=== PATIENT | male | born 1965 | race Caucasian/White ===

== ENCOUNTER 2018-01-30 10:00 | Inpatient (IN) | payer OTHER ==
[~2018-01-30] VITALS: Ht 180.3 cm; Wt 141.9 kg
[2018-01-30] MEDS: potassium Cl 20mEq in NS 1,000 ML IV SCH ×2 (08:24→12:43)
[2018-01-30] MEDS ORDERED: nitroGLYCERIN 1gm ointment UD TP ONE (10:05)
[2018-01-30 10:24] LABS: BASOPHILS % (AUTO) 0.4 % (0-1); EOSINOPHILS # (AUTO) 0.2 X10'3 (0-0.9); EOSINOPHILS % (AUTO) 2.3 % (0-6); HEMATOCRIT 47.3 % (42.0-52.0); LYMPHOCYTES % (AUTO) 28.3 % (21-51); MEAN CORPUSCULAR HEMOGLOBIN 27.9 PG (27.0-31.0); MEAN CORPUSCULAR HGB CONC 33.9 % (33.0-36.5); MEAN CORPUSCULAR VOLUME 82.4 FL (78-98); MEAN PLATELET VOLUME 8.8 FL (7.4-10.4); MONOCYTES # (AUTO) 0.6 X10'3 (0-0.9); NEUTROPHILS # (AUTO) 4.2 X10'3 (1.8-7.7); PLATELET COUNT 212 X10'3 (140-440); RED BLOOD COUNT 5.74 X10'6 (4.70-6.10); RED CELL DISTRIBUTION WIDTH 13.9 % (11.5-14.5); WHITE BLOOD COUNT 7.1 X10'3 (4.5-11.0)
[2018-01-30 10:45] LABS: ALANINE AMINOTRANSFERASE 70 U/L (12-78); ALBUMIN 3.8 G/DL (3.4-5.0); ALKALINE PHOSPHATASE 110 IU/L (46-116); ANION GAP 9 (8-16); ASPARTATE AMINO TRANSFERASE 26 U/L (10-37); BILIRUBIN,TOTAL 0.4 MG/DL (0.1-1.0); BLOOD UREA NITROGEN 13 MG/DL (7-18); CALCIUM 8.9 MG/DL (8.5-10.1); CHLORIDE 103 MMOL/L (99-107); GLUCOSE 266 MG/DL (70-104); MAGNESIUM 2.2 MG/DL (1.5-2.4); POTASSIUM 4.3 MMOL/L (3.5-5.1); SODIUM 136 MMOL/L (135-145); TOTAL CARBON DIOXIDE 24.5 MMOL/L (24-32); TOTAL PROTEIN 7.7 G/DL (6.4-8.2); eGFR 79 ML/MIN
[2018-01-30] MEDS ORDERED: acetaminophen 325mg tablet PO PRN (11:35)
[2018-01-30] MEDS ORDERED: potassium Cl 40MEQ/NS 500ml 500 ML IV PRN ×2 (11:35)
[2018-01-30] MEDS ORDERED: potassium Cl 20 mEq SR tablet PO PRN ×2 (11:35)
[2018-01-30] MEDS ORDERED: mag hydrox/Alum hydrox/simeth 30ml oral suspension PO PRN (11:35)
[2018-01-30] MEDS ORDERED: magnesium 2GM in 50ml NS 50 ML IV PRN (11:35)
[2018-01-30] MEDS ORDERED: dextrose ORAL solution 15 GM/59 ML bottle PO PRN ×2 (11:35)
[2018-01-30] MEDS ORDERED: glucagon, human recombinant 1mg kit SUBCUT PRN (11:35)
[2018-01-30] MEDS ORDERED: ondansetron/PF 4mg/2ml inj IV PRN (11:35)
[2018-01-30] MEDS ORDERED: magnesium hydroxide 30ml (MOM) UD suspension PO PRN (11:35)
[2018-01-30] MEDS ORDERED: lisinopril 10 MG tablet PO ONE (11:35)
[2018-01-30] MEDS ORDERED: heparin 10,000 units/1 ML INJ IV ONE (11:35)
[2018-01-30] MEDS ORDERED: MESSAGE TO PHARMACY PO ONE (11:35)
[2018-01-30] MEDS ORDERED: magnesium Cl slow-release 64mg tablet PO PRN (11:35)
[2018-01-30] MEDS ORDERED: magnesium 4gm in 100ml NS 100 ML IV PRN (11:35)
[2018-01-30] MEDS ORDERED: dextrose 50%-water 50ml dispensing syringe IV PRN ×2 (11:35)
[2018-01-30 12:10] LABS: PARTIAL THROMBOPLASTIN TIME 29 SECONDS (22-32); PROTHROMBIN TIME 10.4 SECONDS (9.0-12.0)
[2018-01-30 12:59] LABS: HEMOGLOBIN A1C 10.5 % (4.5-6.2)
[2018-01-30] MEDS ORDERED: METF500T7 PO (14:07)
[2018-01-30] MEDS ORDERED: ATOR80TA PO (14:08)
[2018-01-30] MEDS ORDERED: LISI-600 PO (14:09)
[2018-01-30] MEDS ORDERED: ASPI81TA52 PO (14:10)
[2018-01-30 16:00] VITALS: BP 115/60
[2018-01-30 19:00] VITALS: BP 116/74
[2018-01-30] MEDS: insulin Lispro (HumaLOG) vial - multi-dose SQ SCH ×2 (19:19→21:01)
[2018-01-30] MEDS: heparin 10,000 units/1 ML INJ IV PRN (19:57)
[2018-01-30] MEDS: insulin glargine (Lantus) pen - multi-dose SQ SCH (21:00)
[2018-01-30 23:00] VITALS: BP 105/67
[2018-01-31] VITALS (19 sets, daily range): BP systolic 114–151; BP diastolic 53–93
[2018-01-31 02:51] LABS: BASOPHILS % (AUTO) 0.3 % (0-1); EOSINOPHILS # (AUTO) 0.2 X10'3 (0-0.9); EOSINOPHILS % (AUTO) 2.9 % (0-6); HEMATOCRIT 41.3 % (42.0-52.0); HEMOGLOBIN 14.3 g/dl (14.0-17.9); LYMPHOCYTES # (AUTO) 2.3 X10'3 (1.1-4.8); LYMPHOCYTES % (AUTO) 29.3 % (21-51); MEAN CORPUSCULAR HEMOGLOBIN 28.6 PG (27.0-31.0); MEAN CORPUSCULAR HGB CONC 34.7 % (33.0-36.5); MEAN CORPUSCULAR VOLUME 82.6 FL (78-98); MEAN PLATELET VOLUME 8.9 FL (7.4-10.4); MONOCYTES # (AUTO) 0.8 X10'3 (0-0.9); MONOCYTES % (AUTO) 9.4 % (2-12); NEUTROPHILS # (AUTO) 4.6 X10'3 (1.8-7.7); NEUTROPHILS % (AUTO) 58.1 % (42-75); PLATELET COUNT 187 X10'3 (140-440); RED CELL DISTRIBUTION WIDTH 13.9 % (11.5-14.5)
[2018-01-31 03:05] LABS: CHOLESTEROL 166 MG/DL (0-200); HDL CHOLESTEROL 41 MG/DL (35-60); LDL CHOLESTEROL 103 MG/DL (50-100); MAGNESIUM 1.9 MG/DL (1.5-2.4); TRIGLYCERIDES 202 MG/DL (20-135)
[2018-01-31] MEDS: heparin 10,000 units/1 ML INJ IV PRN (03:51)
[2018-01-31] MEDS: lisinopril 10 MG tablet PO SCH (08:00)
[2018-01-31] MEDS: atorvastatin 20mg tablet PO SCH (08:00)
[2018-01-31] MEDS: K and/or MAG REPLACEMENT MC SCH (08:00)
[2018-01-31] MEDS: potassium Cl 20mEq in NS 1,000 ML IV SCH ×3 (08:15→18:07)
[2018-01-31] MEDS: insulin Lispro (HumaLOG) vial - multi-dose SQ SCH ×2 (08:21→12:55)
[2018-01-31] MEDS: aspirin 81mg tablet.DR PO SCH (08:24)
[2018-01-31] MEDS ORDERED: aspirin 325mg tablet PO SCH (08:30)
[2018-01-31] MEDS ORDERED: LIDOcaine 1% 30ml preserv. free vial ONE ×2 (15:43→16:58)
[2018-01-31] MEDS ORDERED: iohexol 350MG/ML 100ml bottle IV ONE (15:44)
[2018-01-31] MEDS ORDERED: fentaNYL/PF 50MCG/1 ML 2ML syringe ONE (16:57)
[2018-01-31] MEDS ORDERED: midazolam 2 mg/2 ml injection ONE ×2 (16:57→17:07)
[2018-01-31] MEDS ORDERED: OXAZEpam 15mg capsule PO PRN (18:35)
[2018-01-31] MEDS ORDERED: proCHLORperazine 10 MG/2 ml inj IV PRN (18:35)
[2018-01-31] MEDS: morphine 4 MG/ML inj SYRINge IV PRN (18:54)
[2018-01-31] MEDS: insulin glargine (Lantus) pen - multi-dose SQ SCH (20:49)
[2018-02-01] MEDS: heparin 10,000 units/1 ML INJ IV PRN ×2 (00:46→15:02)
[2018-02-01 03:00] VITALS: BP 137/89
[2018-02-01] MEDS: potassium Cl 20mEq in NS 1,000 ML IV SCH ×2 (05:53→16:05)
[2018-02-01 06:00] VITALS: BP 159/99
[2018-02-01 07:01] LABS: BASOPHILS % (AUTO) 0.3 % (0-1); EOSINOPHILS # (AUTO) 0.1 X10'3 (0-0.9); EOSINOPHILS % (AUTO) 2.4 % (0-6); HEMATOCRIT 44.2 % (42.0-52.0); HEMOGLOBIN 15.1 g/dl (14.0-17.9); LYMPHOCYTES # (AUTO) 1.7 X10'3 (1.1-4.8); LYMPHOCYTES % (AUTO) 26.4 % (21-51); MEAN CORPUSCULAR HEMOGLOBIN 28.5 PG (27.0-31.0); MEAN CORPUSCULAR HGB CONC 34.2 % (33.0-36.5); MEAN CORPUSCULAR VOLUME 83.2 FL (78-98); MEAN PLATELET VOLUME 8.8 FL (7.4-10.4); MONOCYTES # (AUTO) 0.6 X10'3 (0-0.9); NEUTROPHILS # (AUTO) 3.9 X10'3 (1.8-7.7); NEUTROPHILS % (AUTO) 61.9 % (42-75); PLATELET COUNT 189 X10'3 (140-440); RED BLOOD COUNT 5.31 X10'6 (4.70-6.10); WHITE BLOOD COUNT 6.4 X10'3 (4.5-11.0)
[2018-02-01 07:10] LABS: ALBUMIN 3.3 G/DL (3.4-5.0); ANION GAP 9 (8-16); BLOOD UREA NITROGEN 9 MG/DL (7-18); BUN/CREATININE RATIO 8.8 (5.4-32.0); CALCIUM 8.5 MG/DL (8.5-10.1); CHLORIDE 104 MMOL/L (99-107); CREATININE 1.02 MG/DL (0.60-1.10); GLUCOSE 214 MG/DL (70-104); POTASSIUM 4.3 MMOL/L (3.5-5.1); SODIUM 139 MMOL/L (135-145); TOTAL CARBON DIOXIDE 26.5 MMOL/L (24-32); eGFR 77 ML/MIN
[2018-02-01] MEDS: lisinopril 10 MG tablet PO SCH (07:23)
[2018-02-01] MEDS: aspirin 81mg tablet.DR PO SCH (07:23)
[2018-02-01] MEDS: atorvastatin 20mg tablet PO SCH (07:24)
[2018-02-01] MEDS: insulin Lispro (HumaLOG) vial - multi-dose SQ SCH ×2 (07:35→19:20)
[2018-02-01] MEDS: K and/or MAG REPLACEMENT MC SCH (08:00)
[2018-02-01 11:00] VITALS: BP 139/88
[2018-02-01] MEDS ORDERED: cefazolin/dext.iso 2gm/50ml 50 ML IV ONE (11:10)
[2018-02-01 11:30] LABS: HEMATOCRIT 44.8 % (42.0-52.0); HEMOGLOBIN 15.5 g/dl (14.0-17.9); MEAN CORPUSCULAR HEMOGLOBIN 28.4 PG (27.0-31.0); MEAN CORPUSCULAR HGB CONC 34.5 % (33.0-36.5); MEAN CORPUSCULAR VOLUME 82.3 FL (78-98); MEAN PLATELET VOLUME 8.8 FL (7.4-10.4); PLATELET COUNT 201 X10'3 (140-440); RED BLOOD COUNT 5.45 X10'6 (4.70-6.10); RED CELL DISTRIBUTION WIDTH 14.3 % (11.5-14.5); WHITE BLOOD COUNT 6.6 X10'3 (4.5-11.0)
[2018-02-01 11:43] LABS: ALBUMIN 3.5 G/DL (3.4-5.0); ANION GAP 7 (8-16); BLOOD UREA NITROGEN 9 MG/DL (7-18); CALCIUM 8.9 MG/DL (8.5-10.1); CHLORIDE 103 MMOL/L (99-107); GLUCOSE 219 MG/DL (70-104); POTASSIUM 4.3 MMOL/L (3.5-5.1); SODIUM 137 MMOL/L (135-145); TOTAL CARBON DIOXIDE 27.3 MMOL/L (24-32); eGFR 79 ML/MIN
[2018-02-01 13:59] LABS: INR 1.1 INR; PROTHROMBIN TIME 11.1 SECONDS (9.0-12.0)
[2018-02-01 15:00] VITALS: BP 144/86
[2018-02-01 17:56] LABS: ABG BASE EXCESS -2.1 mmol/L (-2.0-3.0); ABG HCO3 21.3 mmol/L (22.0-26.0); ABG OXYGEN SATURATION 96.9 % (95-98); ABG PH (T) 7.428 (7.350-7.450); ABG PO2 (T) 84.7 mmHg (83-108); ALLEN'S TEST Positive; FCOHb 0.5 % (0.5-1.5); FMetHb 0.2 % (0.3-1.12); FO2Hb 96.2 % (94-100); TOTAL HEMOGLOBIN 15.4 G/dl (14.0-18.0)
[2018-02-01 19:00] VITALS: BP 143/94
[2018-02-01] MEDS: insulin glargine (Lantus) pen - multi-dose SQ SCH (22:22)
[2018-02-01 23:00] VITALS: BP 143/79
[2018-02-02 03:00] VITALS: BP 143/85
[2018-02-02 05:57] LABS: BASOPHILS % (AUTO) 0.5 % (0-1); EOSINOPHILS # (AUTO) 0.2 X10'3 (0-0.9); EOSINOPHILS % (AUTO) 2.5 % (0-6); HEMATOCRIT 43.2 % (42.0-52.0); HEMOGLOBIN 14.8 g/dl (14.0-17.9); LYMPHOCYTES # (AUTO) 2.2 X10'3 (1.1-4.8); LYMPHOCYTES % (AUTO) 29.1 % (21-51); MEAN CORPUSCULAR HEMOGLOBIN 28.3 PG (27.0-31.0); MEAN CORPUSCULAR HGB CONC 34.3 % (33.0-36.5); MEAN CORPUSCULAR VOLUME 82.5 FL (78-98); MEAN PLATELET VOLUME 9.1 FL (7.4-10.4); MONOCYTES # (AUTO) 0.8 X10'3 (0-0.9); MONOCYTES % (AUTO) 9.8 % (2-12); NEUTROPHILS # (AUTO) 4.5 X10'3 (1.8-7.7); NEUTROPHILS % (AUTO) 58.1 % (42-75); PLATELET COUNT 196 X10'3 (140-440); RED BLOOD COUNT 5.24 X10'6 (4.70-6.10); RED CELL DISTRIBUTION WIDTH 13.9 % (11.5-14.5); WHITE BLOOD COUNT 7.7 X10'3 (4.5-11.0)
[2018-02-02 06:00] VITALS: BP 140/95
[2018-02-02 06:13] LABS: ALBUMIN 3.4 G/DL (3.4-5.0); ANION GAP 7 (8-16); BLOOD UREA NITROGEN 9 MG/DL (7-18); CALCIUM 8.8 MG/DL (8.5-10.1); CHLORIDE 103 MMOL/L (99-107); GLUCOSE 172 MG/DL (70-104); POTASSIUM 4.5 MMOL/L (3.5-5.1); SODIUM 137 MMOL/L (135-145); TOTAL CARBON DIOXIDE 27.1 MMOL/L (24-32); eGFR 79 ML/MIN
[2018-02-02 06:16] LABS: INR 1.1 INR; PROTHROMBIN TIME 11.5 SECONDS (9.0-12.0)
[2018-02-02] MEDS: ondansetron/PF 4mg/2ml inj IV PRN (06:32)
[2018-02-02] MEDS: morphine 4 MG/ML inj SYRINge IV PRN ×2 (06:36→14:48)
[2018-02-02] MEDS ORDERED: nitroGLYCERIN 0.4mg SUBLingual tab SL PRN (07:50)
[2018-02-02] MEDS: K and/or MAG REPLACEMENT MC SCH (08:00)
[2018-02-02] MEDS: aspirin 81mg tablet.DR PO SCH (08:03)
[2018-02-02] MEDS: lisinopril 10 MG tablet PO SCH (08:03)
[2018-02-02] MEDS: atorvastatin 20mg tablet PO SCH (08:03)
[2018-02-02 08:04] VITALS: BP 150/91
[2018-02-02] MEDS: insulin Lispro (HumaLOG) vial - multi-dose SQ SCH ×3 (09:26→18:38)
[2018-02-02] MEDS: potassium Cl 20mEq in NS 1,000 ML IV SCH ×2 (09:28→19:33)
[2018-02-02] MEDS ORDERED: ringers solution, lacted 1,000 ML IV ONE (09:54)
[2018-02-02] MEDS ORDERED: diazepam 5mg tablet PO ONE (09:55)
[2018-02-02 11:00] VITALS: BP 145/88
[2018-02-02 15:00] VITALS: BP 103/70
[2018-02-02 19:25] VITALS: BP 128/74
[2018-02-02] MEDS: insulin glargine (Lantus) pen - multi-dose SQ SCH (21:00)
[2018-02-03] VITALS (12 sets, daily range): BP systolic 98–144; BP diastolic 50–85
[2018-02-03] MEDS: potassium Cl 20mEq in NS 1,000 ML IV SCH ×2 (00:20→15:07)
[2018-02-03 02:31] LABS: BASOPHILS % (AUTO) 0.2 % (0-1); EOSINOPHILS # (AUTO) 0.2 X10'3 (0-0.9); EOSINOPHILS % (AUTO) 2.7 % (0-6); HEMATOCRIT 43.8 % (42.0-52.0); HEMOGLOBIN 14.8 g/dl (14.0-17.9); LYMPHOCYTES # (AUTO) 2.4 X10'3 (1.1-4.8); LYMPHOCYTES % (AUTO) 29.1 % (21-51); MEAN CORPUSCULAR HEMOGLOBIN 28.2 PG (27.0-31.0); MEAN CORPUSCULAR HGB CONC 33.8 % (33.0-36.5); MEAN CORPUSCULAR VOLUME 83.3 FL (78-98); MEAN PLATELET VOLUME 8.7 FL (7.4-10.4); MONOCYTES # (AUTO) 0.7 X10'3 (0-0.9); NEUTROPHILS # (AUTO) 4.9 X10'3 (1.8-7.7); PLATELET COUNT 179 X10'3 (140-440); RED BLOOD COUNT 5.25 X10'6 (4.70-6.10); RED CELL DISTRIBUTION WIDTH 14.2 % (11.5-14.5); WHITE BLOOD COUNT 8.3 X10'3 (4.5-11.0)
[2018-02-03 02:36] LABS: ALBUMIN 3.3 G/DL (3.4-5.0); ANION GAP 11 (8-16); BLOOD UREA NITROGEN 10 MG/DL (7-18); BUN/CREATININE RATIO 10.4 (5.4-32.0); CALCIUM 8.8 MG/DL (8.5-10.1); CHLORIDE 103 MMOL/L (99-107); CREATININE 0.96 MG/DL (0.60-1.10); GLUCOSE 165 MG/DL (70-104); POTASSIUM 4.3 MMOL/L (3.5-5.1); SODIUM 138 MMOL/L (135-145); TOTAL CARBON DIOXIDE 23.6 MMOL/L (24-32); eGFR 83 ML/MIN
[2018-02-03] MEDS: morphine 4 MG/ML inj SYRINge IV PRN ×4 (03:55→20:09)
[2018-02-03 04:11] LABS: ABG BASE EXCESS 0.5 mmol/L (-2.0-3.0); ABG HCO3 24.9 mmol/L (22.0-26.0); ABG OXYGEN SATURATION 96.1 % (95-98); ABG PCO2 (T) 39.8 mmHg (35.0-48.0); ABG PH (T) 7.415 (7.350-7.450); ABG PO2 (T) 83.3 mmHg (83-108); FCOHb 0.4 % (0.5-1.5); FMetHb 0.1 % (0.3-1.12); FO2Hb 95.6 % (94-100); RESPIRATORY RATE (OBSERVED) 14 b/min; TOTAL HEMOGLOBIN 15.6 G/dl (14.0-18.0)
[2018-02-03] MEDS: insulin regular, human inj. 100 UNITS in normal saline 100ml IV soln 100 ML IV SCH ×8 (05:30→18:09)
[2018-02-03] MEDS ORDERED: isoflurane 100ml inhalation liquid IH ONE ×2 (05:30→10:25)
[2018-02-03] MEDS ORDERED: LORazepam 2 mg/ml vial IV ONE ×2 (06:00→11:30)
[2018-02-03] MEDS ORDERED: famotidine 20mg tablet PO ONE ×2 (06:00→11:30)
[2018-02-03] MEDS: mupirocin 2% nasal ointment 1gm UD NS SCH ×2 (08:00→20:00)
[2018-02-03] MEDS ORDERED: MESSAGE TO NURSING PO ONE ×5 (08:00→10:00)
[2018-02-03] MEDS ORDERED: dextrose 50%-water 50ml dispensing syringe IV PRN ×2 (08:00→15:05)
[2018-02-03] MEDS ORDERED: vancomycin/NS 1 GM ADD-VANTAGE 250 ML IV ONE ×2 (08:00→11:30)
[2018-02-03] MEDS: K and/or MAG REPLACEMENT MC SCH (08:00)
[2018-02-03] MEDS: lisinopril 10 MG tablet PO SCH (08:11)
[2018-02-03] MEDS: atorvastatin 20mg tablet PO SCH (08:11)
[2018-02-03] MEDS: aspirin 81mg tablet.DR PO SCH (08:11)
[2018-02-03] MEDS ORDERED: insulin Lispro (HumaLOG) vial - multi-dose SQ SCH (09:00)
[2018-02-03] MEDS ORDERED: SUFENTANIL CITRATE 50 MCG/ML 2ml ampule IV ONE ×2 (10:04→12:29)
[2018-02-03] MEDS ORDERED: MIDAZolam 1mg/ml 10ml vial ONE (10:04)
[2018-02-03] MEDS ORDERED: LIDOcaine 2% (20mg/ml) 5ml vial ONE (10:18)
[2018-02-03] MEDS ORDERED: rocuronium 10mg/ml inj IV ONE ×2 (10:18→12:11)
[2018-02-03] MEDS ORDERED: epiNEPHrine 1 mg/ml inj ONE (10:18)
[2018-02-03] MEDS ORDERED: etomidate 2mg/ml inj. ONE (10:18)
[2018-02-03] MEDS ORDERED: phenylephrine 10mg/ml inj IV ONE ×2 (10:18→13:00)
[2018-02-03] MEDS ORDERED: protamine sulf. 10mg/ml inj. IV ONE ×2 (10:25)
[2018-02-03] MEDS ORDERED: nitroGLYCERIN in D5W 50mg/250ml (Tridil) infusion IV ONE (10:25)
[2018-02-03] MEDS ORDERED: DOPamine/D5W 400mg/250ml bag IV ONE (10:25)
[2018-02-03] MEDS ORDERED: ipratropium/albuterol 3ml nebule IH PRN (10:25)
[2018-02-03 11:11] LABS: ABG BASE EXCESS -0.9 mmol/L (-2.0-3.0); ABG HCO3 23.8 mmol/L (22.0-26.0); ABG OXYGEN SATURATION 99.2 % (95-98); ABG PH 7.393 (7.350-7.450); CL (ABG) 103 mmol/L (99-107); FCOHb 0.8 % (0.5-1.5); FMetHb 0.3 % (0.3-1.12); FO2Hb 98.1 % (94-100); GLUCOSE (ABG) 157 mg/dl (70-105); IONIZED CA (ABG) 1.19 mmol/L (1.03-1.32); K (ABG) 4.4 mmol/L (3.3-5.1); NA (ABG) 136 mmol/L (135-145); TOTAL HEMOGLOBIN 15.4 G/dl (14.0-18.0)
[2018-02-03] MEDS ORDERED: papaverine 30 mg/ml 2ml inj. IA ONE (11:49)
[2018-02-03] MEDS: insulin Lispro (HumaLOG) vial - multi-dose SQ SCH ×3 (12:00→16:25)
[2018-02-03] MEDS ORDERED: insulin regular, human inj. 100 UNITS in normal saline 100ml IV soln 100 ML IV SCH ×4 (12:00→15:05)
[2018-02-03 12:30] LABS: ABG BASE EXCESS VENOUS -0.9 mmol/L; ABG HCO3 VENOUS 25.1 mmol/L; ABG PCO2 VENOUS 46.4 mmHg; ABG PO2 VENOUS 44.8 mmHg; CL (ABG) 103 mmol/L (99-107); FCOHb VENOUS 1.1 %; FHHb VENOUS 19.3 %; FMetHb VENOUS 0.4 %; FO2Hb VENOUS 79.2 %; GLUCOSE (ABG) 138 mg/dl (70-105); IONIZED CA (ABG) 1.19 mmol/L (1.03-1.32); K (ABG) 4.4 mmol/L (3.3-5.1); NA (ABG) 136 mmol/L (135-145); TOTAL HEMOGLOBIN 14.8 G/dl (14.0-18.0)
[2018-02-03] MEDS ORDERED: MAGNESIUM SULFATE 4 MEQ/ML (1gm/2ml) injection ONE (13:00)
[2018-02-03] MEDS ORDERED: heparin 1,000 units/ml 10ml inj ONE (13:00)
[2018-02-03] MEDS ORDERED: sodium bicarbonate (8.4%) 1 mEq/ml syringe ONE (13:00)
[2018-02-03] MEDS ORDERED: methylPREDNISolone sod. succ. 500mg inj ONE (13:00)
[2018-02-03] MEDS ORDERED: NORepinephrine 1 mg/ml inj IV ONE (13:00)
[2018-02-03] MEDS ORDERED: aminocaproic acid 250 MG/1 ML inj. ONE (13:00)
[2018-02-03] MEDS ORDERED: potassium Cl 2 mEq/ml inj IV ONE (13:00)
[2018-02-03] MEDS ORDERED: heparin 10,000 units/1 ML INJ ONE (13:00)
[2018-02-03] MEDS ORDERED: calcium chloride 100 MG/1 ML inj IV ONE (13:00)
[2018-02-03] MEDS ORDERED: LIDOcaine 2% (20 mg/ml) 5ml cardiac syringe ONE (13:00)
[2018-02-03] MEDS ORDERED: albumin (human) 25% 100 ML IV solution IV ONE (13:00)
[2018-02-03 13:01] LABS: ABG BASE EXCESS VENOUS -0.9 mmol/L; ABG HCO3 VENOUS 25.5 mmol/L; ABG PCO2 VENOUS 48.6 mmHg; ABG PO2 VENOUS 43.3 mmHg; CL (ABG) 104 mmol/L (99-107); FCOHb VENOUS 1.2 %; FHHb VENOUS 22.1 %; FMetHb VENOUS 0.4 %; FO2Hb VENOUS 76.3 %; GLUCOSE (ABG) 145 mg/dl (70-105); IONIZED CA (ABG) 1.16 mmol/L (1.03-1.32); K (ABG) 4.3 mmol/L (3.3-5.1); NA (ABG) 136 mmol/L (135-145); TOTAL HEMOGLOBIN 14.6 G/dl (14.0-18.0)
[2018-02-03 13:25] LABS: ABG BASE EXCESS -1.5 mmol/L (-2.0-3.0); ABG HCO3 23.7 mmol/L (22.0-26.0); ABG OXYGEN SATURATION 99.1 % (95-98); ABG PCO2 42.2 mmHg (35.0-45.0); ABG PH 7.368 (7.350-7.450); ABG PO2 264.2 mmHg (60.0-100.0); CL (ABG) 101 mmol/L (99-107); FCOHb 0.3 % (0.5-1.5); FMetHb 0.3 % (0.3-1.12); FO2Hb 98.5 % (94-100); GLUCOSE (ABG) 134 mg/dl (70-105); IONIZED CA (ABG) 1.05 mmol/L (1.03-1.32); NA (ABG) 131 mmol/L (135-145)
[2018-02-03 13:51] LABS: ABG BASE EXCESS -1.9 mmol/L (-2.0-3.0); ABG HCO3 23.1 mmol/L (22.0-26.0); ABG OXYGEN SATURATION 99.3 % (95-98); ABG PCO2 40.1 mmHg (35.0-45.0); ABG PH 7.378 (7.350-7.450); ABG PO2 343.7 mmHg (60.0-100.0); CL (ABG) 104 mmol/L (99-107); FCOHb 0.5 % (0.5-1.5); FMetHb 0.5 % (0.3-1.12); FO2Hb 98.3 % (94-100); GLUCOSE (ABG) 141 mg/dl (70-105); IONIZED CA (ABG) 1.07 mmol/L (1.03-1.32); K (ABG) 4.2 mmol/L (3.3-5.1); NA (ABG) 134 mmol/L (135-145); TOTAL HEMOGLOBIN 12.5 G/dl (14.0-18.0)
[2018-02-03 14:36] LABS: ABG BASE EXCESS VENOUS -1.4 mmol/L; ABG HCO3 VENOUS 24.5 mmol/L; ABG PCO2 VENOUS 46.1 mmHg; ABG PO2 VENOUS 48.3 mmHg; CL (ABG) 102 mmol/L (99-107); FHHb VENOUS 17.1 %; FMetHb VENOUS 0.4 %; FO2Hb VENOUS 81.5 %; GLUCOSE (ABG) 135 mg/dl (70-105); IONIZED CA (ABG) 1.22 mmol/L (1.03-1.32); NA (ABG) 136 mmol/L (135-145); TOTAL HEMOGLOBIN 12.8 G/dl (14.0-18.0)
[2018-02-03] MEDS ORDERED: sodium chloride 0.45% 1,000 ML IV SCH (15:03)
[2018-02-03] MEDS ORDERED: nitroGLYCERIN-Tridil 50MG/D5W 250 ML IV PRN (15:03)
[2018-02-03] MEDS ORDERED: niCARDipine/sod cl 20mg/200ml 200 ML IV PRN (15:03)
[2018-02-03] MEDS ORDERED: DOPamine 400mg/D5W 250ml 250 ML IV PRN (15:03)
[2018-02-03] MEDS ORDERED: morphine 4 MG/ML inj SYRINge IV PRN (15:05)
[2018-02-03] MEDS ORDERED: albumin (Human) 5% 250ml 250 ML IV PRN (15:05)
[2018-02-03] MEDS ORDERED: magnesium hydroxide 30ml (MOM) UD suspension PO PRN (15:05)
[2018-02-03] MEDS ORDERED: normal saline 250ml IV soln 250 ML IV PRN (15:05)
[2018-02-03] MEDS ORDERED: sodium phosphate inj. 15 MMOL in dextrose 5%-water 150 ML IV PRN (15:05)
[2018-02-03] MEDS ORDERED: magnesium 4gm in 100ml NS 100 ML IV PRN (15:05)
[2018-02-03] MEDS ORDERED: sodium phosphate inj. 30 MMOL in dextrose 5%-water 250 ML IV PRN (15:05)
[2018-02-03] MEDS ORDERED: potassium Cl 20mEq/100mL bag 100 ML IV PRN ×3 (15:05)
[2018-02-03] MEDS ORDERED: Neutra Phos packet PO PRN (15:05)
[2018-02-03] MEDS ORDERED: magnesium 2GM in 50ml NS 50 ML IV PRN (15:05)
[2018-02-03] MEDS ORDERED: metoclopramide 5 mg/ml inj IV PRN (15:05)
[2018-02-03] MEDS ORDERED: ondansetron/PF 4mg/2ml inj IV PRN (15:05)
[2018-02-03] MEDS ORDERED: acetaminophen 325mg tablet PO PRN (15:05)
[2018-02-03 15:35] LABS: BASOPHILS % (AUTO) 0 % (0-1); EOSINOPHILS # (AUTO) 0.3 X10'3 (0-0.9); EOSINOPHILS % (AUTO) 2.3 % (0-6); HEMATOCRIT 39.9 % (42.0-52.0); HEMOGLOBIN 13.6 g/dl (14.0-17.9); LYMPHOCYTES # (AUTO) 1.2 X10'3 (1.1-4.8); LYMPHOCYTES % (AUTO) 8.7 % (21-51); MEAN CORPUSCULAR HEMOGLOBIN 28.2 PG (27.0-31.0); MEAN CORPUSCULAR VOLUME 82.9 FL (78-98); MEAN PLATELET VOLUME 8.4 FL (7.4-10.4); MONOCYTES # (AUTO) 0.6 X10'3 (0-0.9); MONOCYTES % (AUTO) 4.4 % (2-12); NEUTROPHILS # (AUTO) 11.3 X10'3 (1.8-7.7); NEUTROPHILS % (AUTO) 84.6 % (42-75); PLATELET COUNT 157 X10'3 (140-440); RED BLOOD COUNT 4.81 X10'6 (4.70-6.10); RED CELL DISTRIBUTION WIDTH 13.8 % (11.5-14.5); WHITE BLOOD COUNT 13.4 X10'3 (4.5-11.0)
[2018-02-03 15:36] LABS: ABG BASE EXCESS -1.2 mmol/L (-2.0-3.0); ABG HCO3 22.6 mmol/L (22.0-26.0); ABG OXYGEN SATURATION 95.7 % (95-98); ABG PH (T) 7.436 (7.350-7.450); ABG PO2 (T) 70.9 mmHg (83-108); FCOHb 0.4 % (0.5-1.5); FMetHb 0.1 % (0.3-1.12); FO2Hb 95.2 % (94-100); MINUTE VOLUME 10 L/min; PATIENT TEMPERATURE 36.1; PEEP 5 cm H2O; RESPIRATORY RATE 14 b/min; RESPIRATORY RATE (OBSERVED) 14 b/min; TIDAL VOLUME 700 mL; TOTAL HEMOGLOBIN 14.1 G/dl (14.0-18.0)
[2018-02-03 15:50] LABS: ALANINE AMINOTRANSFERASE 100 U/L (12-78); ALBUMIN 3.1 G/DL (3.4-5.0); ALBUMIN/GLOBULIN RATIO 1.1 (1.1-1.5); ALKALINE PHOSPHATASE 79 IU/L (46-116); ANION GAP 7 (8-16); ASPARTATE AMINO TRANSFERASE 75 U/L (10-37); BILIRUBIN,TOTAL 0.8 MG/DL (0.1-1.0); BLOOD UREA NITROGEN 10 MG/DL (7-18); BUN/CREATININE RATIO 9.6 (5.4-32.0); CALCIUM 8.4 MG/DL (8.5-10.1); CHLORIDE 105 MMOL/L (99-107); CREATININE 1.04 MG/DL (0.60-1.10); GLUCOSE 139 MG/DL (70-104); MAGNESIUM 2.9 MG/DL (1.5-2.4); PHOSPHORUS 3.8 MG/DL (2.3-4.5); POTASSIUM 4.5 MMOL/L (3.5-5.1); SODIUM 138 MMOL/L (135-145); TOTAL CARBON DIOXIDE 25.9 MMOL/L (24-32); TOTAL PROTEIN 5.8 G/DL (6.4-8.2); eGFR 76 ML/MIN
[2018-02-03 15:55] LABS: INR 1.1 INR; PARTIAL THROMBOPLASTIN TIME 30 SECONDS (22-32); PROTHROMBIN TIME 11.8 SECONDS (9.0-12.0)
[2018-02-03] MEDS ORDERED: ceFAZolin 1GM/D5W- ADD-VANTAGE 50 ML IV SCH (16:00)
[2018-02-03 17:55] LABS: ABG BASE EXCESS -3.5 mmol/L (-2.0-3.0); ABG HCO3 22.1 mmol/L (22.0-26.0); ABG OXYGEN SATURATION 96.9 % (95-98); ABG PCO2 (T) 40.9 mmHg (35.0-48.0); ABG PH (T) 7.348 (7.350-7.450); ABG PO2 (T) 89.8 mmHg (83-108); FCOHb 0.3 % (0.5-1.5); FMetHb 0.2 % (0.3-1.12); FO2Hb 96.4 % (94-100); MINUTE VOLUME 11 L/min; PATIENT TEMPERATURE 36.4; PEEP 8 cm H2O; RESPIRATORY RATE 14 b/min; RESPIRATORY RATE (OBSERVED) 15 b/min; TIDAL VOLUME 700 mL; TOTAL HEMOGLOBIN 13.8 G/dl (14.0-18.0)
[2018-02-03] MEDS: docusate sod 100mg capsule PO SCH (20:00)
[2018-02-03] MEDS: mupirocin 2% ointment 22GM NS SCH (20:06)
[2018-02-03] MEDS: vancomycin/NS 1 GM ADD-VANTAGE 250 ML IV SCH (20:06)
[2018-02-03] MEDS: insulin glargine (Lantus) pen - multi-dose SQ SCH (20:31)
[2018-02-03 21:23] LABS: BASOPHILS % (AUTO) 0 % (0-1); EOSINOPHILS # (AUTO) 0.2 X10'3 (0-0.9); EOSINOPHILS % (AUTO) 1.7 % (0-6); HEMATOCRIT 40.7 % (42.0-52.0); HEMOGLOBIN 13.6 g/dl (14.0-17.9); LYMPHOCYTES # (AUTO) 0.6 X10'3 (1.1-4.8); LYMPHOCYTES % (AUTO) 4.4 % (21-51); MEAN CORPUSCULAR HEMOGLOBIN 28.2 PG (27.0-31.0); MEAN CORPUSCULAR HGB CONC 33.5 % (33.0-36.5); MONOCYTES # (AUTO) 0.3 X10'3 (0-0.9); MONOCYTES % (AUTO) 2.2 % (2-12); NEUTROPHILS # (AUTO) 12.2 X10'3 (1.8-7.7); NEUTROPHILS % (AUTO) 91.7 % (42-75); PLATELET COUNT 157 X10'3 (140-440); RED BLOOD COUNT 4.85 X10'6 (4.70-6.10); RED CELL DISTRIBUTION WIDTH 14.1 % (11.5-14.5); WHITE BLOOD COUNT 13.3 X10'3 (4.5-11.0)
[2018-02-03 21:32] LABS: ALBUMIN 3.1 G/DL (3.4-5.0); ANION GAP 10 (8-16); BLOOD UREA NITROGEN 12 MG/DL (7-18); BUN/CREATININE RATIO 8.9 (5.4-32.0); CALCIUM 8.7 MG/DL (8.5-10.1); CHLORIDE 105 MMOL/L (99-107); CREATININE 1.35 MG/DL (0.60-1.10); GLUCOSE 223 MG/DL (70-104); POTASSIUM 4.5 MMOL/L (3.5-5.1); SODIUM 138 MMOL/L (135-145); TOTAL CARBON DIOXIDE 23.3 MMOL/L (24-32); eGFR 56 ML/MIN
[2018-02-03 21:46] LABS: MAGNESIUM 2.5 MG/DL (1.5-2.4)
[2018-02-04] VITALS (24 sets, daily range): BP systolic 104–177; BP diastolic 7–84
[2018-02-04] MEDS: ondansetron/PF 4mg/2ml inj IV PRN ×2 (00:18→06:42)
[2018-02-04 00:25] LABS: ABG BASE EXCESS -4.9 mmol/L (-2.0-3.0); ABG HCO3 19.4 mmol/L (22.0-26.0); ABG OXYGEN SATURATION 91.9 % (95-98); ABG PCO2 (T) 33.5 mmHg (35.0-48.0); ABG PH (T) 7.379 (7.350-7.450); FCOHb 0.3 % (0.5-1.5); FMetHb 0.2 % (0.3-1.12); FO2Hb 91.4 % (94-100); MINUTE VOLUME 11 L/min; PATIENT TEMPERATURE 36.7; PEEP 5 cm H2O; RESPIRATORY RATE 0 b/min; TOTAL HEMOGLOBIN 13.9 G/dl (14.0-18.0)
[2018-02-04] MEDS: HYDROcodone/acetaminophen 10/325mg tab PO PRN ×2 (01:09→04:55)
[2018-02-04] MEDS: potassium Cl 20mEq in NS 1,000 ML IV SCH ×3 (01:33→21:33)
[2018-02-04 02:28] LABS: BASOPHILS % (AUTO) 0 % (0-1); EOSINOPHILS # (AUTO) 0.2 X10'3 (0-0.9); EOSINOPHILS % (AUTO) 1.3 % (0-6); HEMATOCRIT 39.9 % (42.0-52.0); HEMOGLOBIN 13.4 g/dl (14.0-17.9); LYMPHOCYTES # (AUTO) 0.6 X10'3 (1.1-4.8); LYMPHOCYTES % (AUTO) 4.2 % (21-51); MEAN CORPUSCULAR HEMOGLOBIN 28.2 PG (27.0-31.0); MEAN CORPUSCULAR HGB CONC 33.6 % (33.0-36.5); MEAN CORPUSCULAR VOLUME 83.9 FL (78-98); MONOCYTES # (AUTO) 0.5 X10'3 (0-0.9); MONOCYTES % (AUTO) 3.6 % (2-12); NEUTROPHILS # (AUTO) 13.6 X10'3 (1.8-7.7); NEUTROPHILS % (AUTO) 90.9 % (42-75); PLATELET COUNT 162 X10'3 (140-440); RED BLOOD COUNT 4.76 X10'6 (4.70-6.10); RED CELL DISTRIBUTION WIDTH 14.2 % (11.5-14.5); WHITE BLOOD COUNT 14.9 X10'3 (4.5-11.0)
[2018-02-04 02:37] LABS: INR 1.1 INR; PARTIAL THROMBOPLASTIN TIME 26 SECONDS (22-32); PROTHROMBIN TIME 11.4 SECONDS (9.0-12.0)
[2018-02-04] MEDS: morphine 4 MG/ML inj SYRINge IV PRN ×4 (02:37→22:05)
[2018-02-04 02:47] LABS: ALANINE AMINOTRANSFERASE 106 U/L (12-78); ALBUMIN 3.2 G/DL (3.4-5.0); ALKALINE PHOSPHATASE 72 IU/L (46-116); ANION GAP 9 (8-16); ASPARTATE AMINO TRANSFERASE 64 U/L (10-37); BILIRUBIN,TOTAL 0.4 MG/DL (0.1-1.0); BLOOD UREA NITROGEN 12 MG/DL (7-18); BUN/CREATININE RATIO 10.5 (5.4-32.0); CALCIUM 8.7 MG/DL (8.5-10.1); CHLORIDE 107 MMOL/L (99-107); CREATININE 1.14 MG/DL (0.60-1.10); GLUCOSE 184 MG/DL (70-104); MAGNESIUM 2.3 MG/DL (1.5-2.4); PHOSPHORUS 3.3 MG/DL (2.3-4.5); POTASSIUM 4.4 MMOL/L (3.5-5.1); SODIUM 140 MMOL/L (135-145); TOTAL CARBON DIOXIDE 23.7 MMOL/L (24-32); TOTAL PROTEIN 6.3 G/DL (6.4-8.2); eGFR 68 ML/MIN
[2018-02-04] MEDS: insulin regular, human inj. 100 UNITS in normal saline 100ml IV soln 100 ML IV SCH ×10 (05:29→23:22)
[2018-02-04] MEDS: K and/or MAG REPLACEMENT MC SCH (08:00)
[2018-02-04] MEDS: mupirocin 2% nasal ointment 1gm UD NS SCH (08:00)
[2018-02-04] MEDS: mupirocin 2% ointment 22GM NS SCH ×2 (08:04→20:28)
[2018-02-04] MEDS: vancomycin/NS 1 GM ADD-VANTAGE 250 ML IV SCH ×2 (08:06→20:28)
[2018-02-04] MEDS: atorvastatin 20mg tablet PO SCH (08:07)
[2018-02-04] MEDS: atorvastatin 10mg tablet PO SCH (08:07)
[2018-02-04] MEDS: aspirin 325mg tablet, delayed-release (Ecotrin) PO SCH (08:07)
[2018-02-04] MEDS: pantoprazole 40mg Tablet.DR PO SCH (08:07)
[2018-02-04] MEDS: docusate sod 100mg capsule PO SCH ×2 (08:07→20:28)
[2018-02-04] MEDS: metoprolol tartrate 12.5mg (1/2 tablet) PO SCH ×2 (08:07→20:28)
[2018-02-04] MEDS: lisinopril 10 MG tablet PO SCH (08:08)
[2018-02-04] MEDS: insulin Lispro (HumaLOG) vial - multi-dose SQ SCH ×3 (09:00→18:00)
[2018-02-04] MEDS ORDERED: insulin glargine (Lantus) pen - multi-dose SQ SCH (21:00)
[2018-02-05] VITALS (14 sets, daily range): BP systolic 108–161; BP diastolic 60–87
[2018-02-05] MEDS: HYDROcodone/acetaminophen 10/325mg tab PO PRN ×3 (01:15→17:52)
[2018-02-05 02:54] LABS: BASOPHILS % (AUTO) 0.2 % (0-1); EOSINOPHILS % (AUTO) 0 % (0-6); HEMATOCRIT 39.5 % (42.0-52.0); HEMOGLOBIN 13.2 g/dl (14.0-17.9); LYMPHOCYTES # (AUTO) 1.4 X10'3 (1.1-4.8); LYMPHOCYTES % (AUTO) 7.2 % (21-51); MEAN CORPUSCULAR HGB CONC 33.4 % (33.0-36.5); MONOCYTES # (AUTO) 2.2 X10'3 (0-0.9); MONOCYTES % (AUTO) 11.4 % (2-12); NEUTROPHILS # (AUTO) 15.5 X10'3 (1.8-7.7); NEUTROPHILS % (AUTO) 81.2 % (42-75); PLATELET COUNT 169 X10'3 (140-440); RED CELL DISTRIBUTION WIDTH 14.8 % (11.5-14.5); WHITE BLOOD COUNT 19.1 X10'3 (4.5-11.0)
[2018-02-05 03:05] LABS: ANION GAP 9 (8-16); BLOOD UREA NITROGEN 13 MG/DL (7-18); BUN/CREATININE RATIO 13.7 (5.4-32.0); CALCIUM 8.6 MG/DL (8.5-10.1); CHLORIDE 104 MMOL/L (99-107); CREATININE 0.95 MG/DL (0.60-1.10); GLUCOSE 131 MG/DL (70-104); POTASSIUM 4.8 MMOL/L (3.5-5.1); SODIUM 139 MMOL/L (135-145); TOTAL CARBON DIOXIDE 26.4 MMOL/L (24-32); eGFR 84 ML/MIN
[2018-02-05 03:06] LABS: ALBUMIN 3.1 G/DL (3.4-5.0); MAGNESIUM 2.5 MG/DL (1.5-2.4); PHOSPHORUS 4.1 MG/DL (2.3-4.5)
[2018-02-05] MEDS: insulin regular, human inj. 100 UNITS in normal saline 100ml IV soln 100 ML IV SCH ×4 (04:09→05:01)
[2018-02-05] MEDS: morphine 4 MG/ML inj SYRINge IV PRN (04:48)
[2018-02-05] MEDS: pantoprazole 40mg Tablet.DR PO SCH (07:22)
[2018-02-05] MEDS: aspirin 325mg tablet, delayed-release (Ecotrin) PO SCH (07:22)
[2018-02-05] MEDS: docusate sod 100mg capsule PO SCH ×2 (07:22→19:57)
[2018-02-05] MEDS: metoprolol tartrate 12.5mg (1/2 tablet) PO SCH ×2 (07:22→19:57)
[2018-02-05] MEDS: atorvastatin 10mg tablet PO SCH (07:22)
[2018-02-05] MEDS: lisinopril 10 MG tablet PO SCH (07:22)
[2018-02-05] MEDS: K and/or MAG REPLACEMENT MC SCH (07:23)
[2018-02-05] MEDS: mupirocin 2% ointment 22GM NS SCH (07:23)
[2018-02-05] MEDS: insulin Lispro (HumaLOG) vial - multi-dose SQ SCH ×3 (08:26→20:02)
[2018-02-05] MEDS ORDERED: magnesium Cl slow-release 64mg tablet PO PRN (09:40)
[2018-02-05] MEDS ORDERED: magnesium 4gm in 100ml NS 100 ML IV PRN (09:40)
[2018-02-05] MEDS ORDERED: potassium Cl 40MEQ/NS 500ml 500 ML IV PRN ×2 (09:40)
[2018-02-05] MEDS ORDERED: potassium Cl 20 mEq SR tablet PO PRN ×2 (09:40)
[2018-02-05] MEDS ORDERED: magnesium 2GM in 50ml NS 50 ML IV PRN (09:40)
[2018-02-05] MEDS ORDERED: glucagon, human recombinant 1mg kit SUBCUT PRN (10:25)
[2018-02-05] MEDS ORDERED: dextrose ORAL solution 15 GM/59 ML bottle PO PRN ×2 (10:25)
[2018-02-05] MEDS ORDERED: dextrose 50%-water 50ml dispensing syringe IV PRN ×2 (10:25)
[2018-02-05] MEDS: metFORMIN 500mg tablet PO SCH (17:51)
[2018-02-05] MEDS: magnesium Cl slow-release 64mg tablet PO SCH (19:12)
[2018-02-05] MEDS: potassium Cl 20 mEq SR tablet PO SCH (19:12)
[2018-02-05] MEDS: insulin glargine (Lantus) pen - multi-dose SQ SCH (22:08)
[2018-02-06 02:00] VITALS: BP 123/68
[2018-02-06] MEDS: HYDROcodone/acetaminophen 10/325mg tab PO PRN ×2 (05:15→11:23)
[2018-02-06 05:20] LABS: BASOPHILS % (AUTO) 0.2 % (0-1); EOSINOPHILS # (AUTO) 0.3 X10'3 (0-0.9); EOSINOPHILS % (AUTO) 2.7 % (0-6); HEMATOCRIT 39.7 % (42.0-52.0); HEMOGLOBIN 13.4 g/dl (14.0-17.9); LYMPHOCYTES # (AUTO) 2.2 X10'3 (1.1-4.8); LYMPHOCYTES % (AUTO) 18.1 % (21-51); MEAN CORPUSCULAR HEMOGLOBIN 28.3 PG (27.0-31.0); MEAN CORPUSCULAR HGB CONC 33.8 % (33.0-36.5); MEAN CORPUSCULAR VOLUME 83.7 FL (78-98); MEAN PLATELET VOLUME 8.9 FL (7.4-10.4); MONOCYTES # (AUTO) 1.5 X10'3 (0-0.9); MONOCYTES % (AUTO) 12.4 % (2-12); NEUTROPHILS # (AUTO) 8.3 X10'3 (1.8-7.7); NEUTROPHILS % (AUTO) 66.6 % (42-75); PLATELET COUNT 167 X10'3 (140-440); RED BLOOD COUNT 4.75 X10'6 (4.70-6.10); RED CELL DISTRIBUTION WIDTH 14.4 % (11.5-14.5); WHITE BLOOD COUNT 12.4 X10'3 (4.5-11.0)
[2018-02-06 05:21] LABS: ACTIVATED CLOTTING TIME 815 SEC (101-148)
[2018-02-06 05:21] LABS: ACTIVATED CLOTTING TIME 126 SEC (101-148)
[2018-02-06 05:21] LABS: ACT @ 1.70 U 286 SEC (193-297); ACT @ 2.84 U 379 SEC (260-420); BASELINE ACT 148 SEC (101-148)
[2018-02-06 05:45] LABS: ALBUMIN 2.9 G/DL (3.4-5.0); ANION GAP 4 (8-16); BLOOD UREA NITROGEN 16 MG/DL (7-18); BUN/CREATININE RATIO 15.4 (5.4-32.0); CALCIUM 8.9 MG/DL (8.5-10.1); CHLORIDE 101 MMOL/L (99-107); CREATININE 1.04 MG/DL (0.60-1.10); GLUCOSE 160 MG/DL (70-104); MAGNESIUM 2.1 MG/DL (1.5-2.4); POTASSIUM 4.6 MMOL/L (3.5-5.1); SODIUM 137 MMOL/L (135-145); TOTAL CARBON DIOXIDE 31.6 MMOL/L (24-32); eGFR 76 ML/MIN
[2018-02-06 06:30] VITALS: BP 134/86
[2018-02-06] MEDS: metFORMIN 500mg tablet PO SCH ×2 (06:44→17:24)
[2018-02-06] MEDS: potassium Cl 20 mEq SR tablet PO SCH ×2 (06:51→19:12)
[2018-02-06] MEDS: magnesium Cl slow-release 64mg tablet PO SCH ×2 (06:52→18:49)
[2018-02-06] MEDS: atorvastatin 20mg tablet PO SCH (07:38)
[2018-02-06] MEDS: aspirin 81mg tablet.DR PO SCH (07:38)
[2018-02-06] MEDS: pantoprazole 40mg Tablet.DR PO SCH (07:39)
[2018-02-06] MEDS: docusate sod 100mg capsule PO SCH ×2 (07:39→19:50)
[2018-02-06] MEDS: metoprolol tartrate 12.5mg (1/2 tablet) PO SCH ×2 (07:39→19:46)
[2018-02-06] MEDS: lisinopril 20mg tablet PO SCH (07:39)
[2018-02-06] MEDS: aspirin 325mg tablet, delayed-release (Ecotrin) PO SCH (07:45)
[2018-02-06] MEDS: insulin Lispro (HumaLOG) vial - multi-dose SQ SCH ×3 (07:48→19:45)
[2018-02-06] MEDS: K and/or MAG REPLACEMENT MC SCH (07:49)
[2018-02-06] MEDS ORDERED: magnesium citrate 296ml oral solution PO ONE (07:55)
[2018-02-06 11:00] VITALS: BP 131/71
[2018-02-06 15:00] VITALS: BP 121/75
[2018-02-06 18:00] VITALS: BP 114/67
[2018-02-06 22:00] VITALS: BP 122/67
[2018-02-06] MEDS: insulin glargine (Lantus) pen - multi-dose SQ SCH (22:43)
[2018-02-07 02:00] VITALS: BP 128/71
[2018-02-07 05:27] LABS: BASOPHILS % (AUTO) 0.3 % (0-1); EOSINOPHILS # (AUTO) 0.3 X10'3 (0-0.9); EOSINOPHILS % (AUTO) 2.5 % (0-6); HEMATOCRIT 40.7 % (42.0-52.0); HEMOGLOBIN 13.6 g/dl (14.0-17.9); LYMPHOCYTES % (AUTO) 17.4 % (21-51); MEAN CORPUSCULAR HEMOGLOBIN 28.1 PG (27.0-31.0); MEAN CORPUSCULAR HGB CONC 33.5 % (33.0-36.5); MEAN CORPUSCULAR VOLUME 83.9 FL (78-98); MEAN PLATELET VOLUME 8.9 FL (7.4-10.4); MONOCYTES # (AUTO) 1.2 X10'3 (0-0.9); MONOCYTES % (AUTO) 10.9 % (2-12); NEUTROPHILS # (AUTO) 7.8 X10'3 (1.8-7.7); NEUTROPHILS % (AUTO) 68.9 % (42-75); PLATELET COUNT 194 X10'3 (140-440); RED BLOOD COUNT 4.85 X10'6 (4.70-6.10); RED CELL DISTRIBUTION WIDTH 14.2 % (11.5-14.5); WHITE BLOOD COUNT 11.3 X10'3 (4.5-11.0)
[2018-02-07 05:55] LABS: ALBUMIN 2.9 G/DL (3.4-5.0); ANION GAP 11 (8-16); BLOOD UREA NITROGEN 16 MG/DL (7-18); BUN/CREATININE RATIO 17.4 (5.4-32.0); CALCIUM 8.6 MG/DL (8.5-10.1); CHLORIDE 98 MMOL/L (99-107); CREATININE 0.92 MG/DL (0.60-1.10); GLUCOSE 141 MG/DL (70-104); MAGNESIUM 2.1 MG/DL (1.5-2.4); POTASSIUM 4.1 MMOL/L (3.5-5.1); SODIUM 135 MMOL/L (135-145); TOTAL CARBON DIOXIDE 26.1 MMOL/L (24-32); eGFR 87 ML/MIN
[2018-02-07 06:30] VITALS: BP 136/85
[2018-02-07] MEDS: magnesium Cl slow-release 64mg tablet PO SCH (06:31)
[2018-02-07] MEDS: potassium Cl 20 mEq SR tablet PO SCH (06:32)
[2018-02-07] MEDS: aspirin 81mg tablet.DR PO SCH (07:22)
[2018-02-07] MEDS: atorvastatin 20mg tablet PO SCH (07:23)
[2018-02-07] MEDS: metoprolol tartrate 12.5mg (1/2 tablet) PO SCH (07:23)
[2018-02-07] MEDS: pantoprazole 40mg Tablet.DR PO SCH (07:23)
[2018-02-07] MEDS: metFORMIN 500mg tablet PO SCH (07:23)
[2018-02-07] MEDS: lisinopril 20mg tablet PO SCH (07:23)
[2018-02-07] MEDS: docusate sod 100mg capsule PO SCH (08:00)
[2018-02-07] MEDS: K and/or MAG REPLACEMENT MC SCH (08:00)
[2018-02-07] MEDS: aspirin 325mg tablet, delayed-release (Ecotrin) PO SCH (08:00)
[2018-02-07] MEDS: insulin Lispro (HumaLOG) vial - multi-dose SQ SCH (09:04)
[2018-02-07] MEDS ORDERED: COL100C PO (10:13)
[2018-02-07] MEDS ORDERED: METO25TA6 PO (10:13)
[2018-02-07] MEDS ORDERED: HYDR-3972 PO (10:13)
[2018-02-07 11:00] VITALS: BP 120/82
== END 2018-02-07 11:55 | disposition home or self-care (01) | DRG 234 ==
LOC: ER 10:00 → ED HOLD 11:33 → EDBEDREQTM 12:41 → EDBEDREQ 15:04 → PCU 3S 16:00 → UNDODISIN 01-31 16:30 → CICU 2S 02-03 10:56 → PCU 3S 02-05 11:43
PROVIDERS: ADMIT Legal Medicine; ATTEND Internal Medicine Interventional Cardiology
PROC: 4A023N7 Measurement of Cardiac Sampling and Pressure, Left Heart, Percutaneous Approach (ICD-10-PCS; 2018-01-31)
PROC: B2111ZZ Fluoroscopy of Multiple Coronary Arteries using Low Osmolar Contrast (ICD-10-PCS; 2018-01-31)
PROC: B2151ZZ Fluoroscopy of Left Heart using Low Osmolar Contrast (ICD-10-PCS; 2018-01-31)
PROC: 02100Z8 Bypass Coronary Artery, One Artery from Right Internal Mammary, Open Approach (ICD-10-PCS; 2018-02-03)
PROC: 0PH000Z Insertion of Rigid Plate Internal Fixation Device into Sternum, Open Approach (ICD-10-PCS; 2018-02-03)
PROC: B246ZZ4 Ultrasonography of Right and Left Heart, Transesophageal (ICD-10-PCS; 2018-02-03)
PROC: 5A1221Z Performance of Cardiac Output, Continuous (ICD-10-PCS; 2018-02-03)
PROC: 05HM33Z Insertion of Infusion Device into Right Internal Jugular Vein, Percutaneous Approach (ICD-10-PCS; 2018-02-03)
PROC: 02100Z9 Bypass Coronary Artery, One Artery from Left Internal Mammary, Open Approach (ICD-10-PCS; principal; 2018-02-03 10:25)
DX: I25.110 Atherosclerotic heart disease of native coronary artery with unstable angina pectoris (principal); Z68.42 Body mass index [BMI] 45.0-49.9, adult; E66.01 Morbid (severe) obesity due to excess calories; E11.65 Type 2 diabetes mellitus with hyperglycemia; K21.9 Gastro-esophageal reflux disease without esophagitis; I10 Essential (primary) hypertension; E78.5 Hyperlipidemia, unspecified; Z83.3 Family history of diabetes mellitus; Z88.0 Allergy status to penicillin
CPT/HCPCS: 0232T; 93306; 93312; 93325; 93459; 99285; 36415; 36600; 71045; 71046; 80048; 80053; 80061; 82330; 82435; 82803; 82947; 82948; 83036; 83735; 83880; 84100; 84132; 84295; 84443; 84484; 85018; 85025; 85027; 85347; 85384; 85610; 85730; 86885; 86900; 86901; 86920; 87070; 93005; 93880; 93970; 94002; 94003; 94010; 94667; 94760; 97116; 97161; 97530; 99152; 99153; A4620; A6213; A6255; A6257; A6258; A6402; A6449; A7000; A7048; C1713; C1751; C1769; J0171; J0780; J1265; J1644; J1815; J2001; J2150; J2250; J2270; J2370; J2405; J2440; J2720; J2930; J3010; J3370; J3475; J3480; J3490; J7030; J7120; P9047; Q9967

== ENCOUNTER 2021-07-27 22:08 | Inpatient (IN) | payer OTHER ==
[~2021-07-27] VITALS: Ht 177.8 cm; Wt 136.4 kg
[~2021-07-27 22:08] MED LIST: ASPI81TA52 PO; ATOR80TA PO; COL100C PO; HYDR-3972 PO; LISI20TA28 PO; LOP25T PO; METF-900 PO
[2021-07-27] MEDS ORDERED: ondansetron/PF 4mg/2ml inj IV ONE (23:10)
[2021-07-27] MEDS ORDERED: dexamethasone 4mg tablet PO ONE (23:15)
[2021-07-27] MEDS ORDERED: iohexol 350MG/ML 100ml bottle IV ONE (23:29)
[2021-07-27] MEDS ORDERED: DEXAMETHASONE 6 MG TABLET PO ONE (23:30)
[2021-07-27] MEDS ORDERED: ALBUTEROL INHALER 1 PUFF/90 MCG INHALER IH PRN (23:35)
[2021-07-28] LABS: BASOPHILS % (AUTO) 0.4 % (0-1); EOSINOPHILS % (AUTO) 0 % (0-6); HEMATOCRIT 42.9 % (42.0-52.0); HEMOGLOBIN 14.5 g/dl (14.0-17.9); LYMPHOCYTES # (AUTO) 1.2 X10'3 (1.1-4.8); LYMPHOCYTES % (AUTO) 10.6 % (21-51); MEAN CORPUSCULAR HEMOGLOBIN 26.9 PG (27.0-31.0); MEAN CORPUSCULAR HGB CONC 33.9 g/dL (33.0-36.5); MEAN CORPUSCULAR VOLUME 79.5 FL (78-98); MEAN PLATELET VOLUME 8.6 FL (7.4-10.4); MONOCYTES # (AUTO) 0.7 X10'3 (0-0.9); MONOCYTES % (AUTO) 6.6 % (2-12); NEUTROPHILS # (AUTO) 9.1 X10'3 (1.8-7.7); NEUTROPHILS % (AUTO) 82.4 % (42-75); PLATELET COUNT 161 X10'3 (140-440); RED BLOOD COUNT 5.39 X10'6 (4.70-6.10); RED CELL DISTRIBUTION WIDTH 14.4 % (11.5-14.5)
[2021-07-28 00:07] LABS: ALANINE AMINOTRANSFERASE 39 U/L (12-78); ALBUMIN/GLOBULIN RATIO 0.6 (1.1-1.5); ALKALINE PHOSPHATASE 70 IU/L (46-116); ANION GAP 10 (8-16); ASPARTATE AMINO TRANSFERASE 40 U/L (10-37); BILIRUBIN,TOTAL 0.5 MG/DL (0.1-1.0); BLOOD UREA NITROGEN 12 MG/DL (7-18); BUN/CREATININE RATIO 10.4 (5.4-32.0); CALCIUM 8.3 MG/DL (8.5-10.1); CHLORIDE 98 MMOL/L (99-107); CREATININE 1.15 MG/DL (0.60-1.10); D-DIMER 0.42 MG/L FEU (0-0.50); GLUCOSE 247 MG/DL (70-104); PARTIAL THROMBOPLASTIN TIME 32 SECONDS (22-32); SODIUM 134 MMOL/L (135-145); TOTAL CARBON DIOXIDE 26.3 MMOL/L (24-32); TOTAL PROTEIN 7.7 G/DL (6.4-8.2); eGFR 66 ML/MIN
[2021-07-28 00:11] LABS: C-REACTIVE PROTEIN 12.68 MG/DL (0.0-0.5); LACTATE DEHYDROGENASE 410 U/L (85-227); TROPONIN I < 0.04 NG/ML (0.0-0.05)
[2021-07-28] MEDS ORDERED: REMDESIVIR INJ 200 MG in normal saline 100ml IV soln 60 ML IV ONE (00:15)
[2021-07-28] MEDS ORDERED: magnesium hydroxide 30ml (MOM) UD suspension PO PRN (00:25)
[2021-07-28] MEDS ORDERED: ondansetron/PF 4mg/2ml inj IV PRN (00:25)
[2021-07-28] MEDS ORDERED: metoclopramide 5 mg/ml inj IV PRN (00:25)
[2021-07-28] MEDS ORDERED: diphenhydrAMINE 50 mg/ml inj IV PRN (00:25)
[2021-07-28] MEDS ORDERED: mag hydrox/Alum hydrox/simeth 30ml oral suspension PO PRN (00:25)
[2021-07-28] MEDS ORDERED: diphenhydrAMINE 25mg capsule PO PRN (00:25)
[2021-07-28] MEDS ORDERED: HYDROmorphone inj. 0.5 MG/0.5 ML DISP.SYRIN IV PRN (00:25)
[2021-07-28] MEDS ORDERED: acetaminophen 325mg tablet PO PRN ×2 (00:25)
[2021-07-28] MEDS ORDERED: bisacodyl 10mg suppository rectal RC PRN (00:25)
[2021-07-28] MEDS ORDERED: HYDROcodone/acetaminophen 5mg/325mg tablet PO PRN (00:25)
[2021-07-28] MEDS ORDERED: HYDROcodone/acetaminophen 10/325mg tab PO PRN (00:25)
[2021-07-28] MEDS ORDERED: morphine 2 MG/ML inj. syringe IV PRN ×2 (00:25)
[2021-07-28] MEDS ORDERED: hydrALAZINE 20mg/ml inj. IV PRN (00:35)
[2021-07-28] MEDS ORDERED: dextrose 50%-water 50ml dispensing syringe IV PRN ×2 (00:35)
[2021-07-28] MEDS ORDERED: glucagon, human recombinant 1mg kit SUBCUT PRN (00:35)
[2021-07-28] MEDS ORDERED: MESSAGE TO PHARMACY PO ONE (00:35)
[2021-07-28] MEDS ORDERED: dextrose ORAL solution 15 GM/59 ML bottle PO PRN ×2 (00:35)
[2021-07-28] MEDS: normal saline 1000ml 1,000 ML IV SCH (00:51)
[2021-07-28 02:06] LABS: HEMOGLOBIN A1C 9.7 % (4.5-6.2)
[2021-07-28] MEDS: MESSAGE TO NURSING PO SCH (02:30)
[2021-07-28 03:25] LABS: PHOSPHORUS 2.9 MG/DL (2.3-4.5)
[2021-07-28] MEDS: pantoprazole 40mg Tablet.DR PO SCH (07:30)
[2021-07-28] MEDS ORDERED: dexamethasone 4mg/ml inj IM SCH (08:00)
[2021-07-28] MEDS: levoFLOXACIN-Levaquin 750MG/D5 150 ML IV SCH (08:00)
[2021-07-28] MEDS: docusate sod 100mg capsule PO SCH ×2 (08:00→20:35)
[2021-07-28] MEDS: enoxaparin 60mg/0.6ml syringe SQ SCH ×2 (08:00→20:35)
[2021-07-28] MEDS ORDERED: dexamethasone sod phosphate 10mg/ml inj IV ONE (08:21)
[2021-07-28] MEDS: REMDESIVIR 100 MG in NS 100ml IVPB IV SCH (09:43)
[2021-07-28] MEDS: insulin Lispro (HumaLOG) vial - multi-dose SQ SCH ×2 (09:46→14:38)
[2021-07-28] MEDS ORDERED: EZET10TA6 PO (10:25)
[2021-07-28] MEDS ORDERED: ALOG25TA PO (10:25)
[2021-07-28] MEDS ORDERED: LISI5TAB22 PO (10:25)
[2021-07-28] MEDS ORDERED: OMEG-79 PO (13:13)
[2021-07-28] MEDS ORDERED: CHOL20004 PO (13:13)
[2021-07-28] MEDS ORDERED: UBID100T7 PO (13:13)
[2021-07-28] MEDS ORDERED: ASCO-100 PO (13:13)
[2021-07-28] MEDS ORDERED: METF-436 PO (13:13)
[2021-07-28] MEDS ORDERED: METO-384 PO (13:13)
[2021-07-28] MEDS: aspirin 81mg, enteric-coated 1 TAB TABLET.DR PO SCH (15:04)
[2021-07-28] MEDS: lisinopril 5mg tablet PO SCH (15:04)
[2021-07-28] MEDS: ezetimibe 10mg tablet PO SCH (15:05)
[2021-07-28] MEDS: lactobacillus rhamnosus 10,000 MMU CELLS/CAPSULE PO SCH (20:35)
[2021-07-28] MEDS: metoprolol succinate 25mg (24-HOUR) SR. Tablet PO SCH (20:35)
[2021-07-28] MEDS: dexamethasone inj 8 MG in normal saline 50ml IV soln 50 ML IV SCH (20:40)
[2021-07-28] MEDS: insulin glargine (Lantus) pen - multi-dose SQ SCH (20:54)
[2021-07-28] MEDS ORDERED: temazepam 15mg capsule PO PRN (21:00)
--- NOTE | 2021-07-29 00:15 | NUR ---
PT ARRIVED TO 4022A FROM ER. PT HAS BEEN ORIENTED TO THE ROOM. CALL LIGHT GIVEN. RECEIVED REPORT FROM EFE EDWARDS PRIOR TO PT'S ARRIVAL.
[2021-07-29 00:20] VITALS: BP 158/93
[2021-07-29] MEDS: insulin Lispro (HumaLOG) vial - multi-dose SQ SCH ×5 (00:33→22:55)
[2021-07-29 02:00] VITALS: BP 137/89
[2021-07-29] MEDS: MESSAGE TO NURSING PO SCH (02:30)
[2021-07-29 05:00] VITALS: BP 146/87
--- NOTE | 2021-07-29 05:59 | NUR ---
CPAP KEEP ALARMING "PT DISCONNECT" SO CONTACTED RT AND AN RT TRY TO FIX. BECAUSE OF PT'S CHIN, IT ALWAYS HAVE LEAK AND MACHINE WILL KEEP ALARMING. THERES NOTHING TO FIX EXCEPT PT KEEP MOUTH CLOSED.
--- NOTE | 2021-07-29 07:07 | NUR ---
Problems reprioritized. Patient report given, questions answered & plan of care reviewed with EFE ALANIZ.
--- NOTE | 2021-07-29 07:08 | NUR ---
Patient in room [facility]. I have received report from Gloria WILKS and had the opportunity to ask questions and assume patient care.
[2021-07-29] MEDS ORDERED: non-formulary drug (Ubidecarenone (Coenzyme Q10) 1 TAB) PO SCH (08:00)
[2021-07-29 08:13] LABS: BASOPHILS % (AUTO) 0.3 % (0-1); EOSINOPHILS % (AUTO) 0 % (0-6); HEMATOCRIT 42.9 % (42.0-52.0); HEMOGLOBIN 14.1 g/dl (14.0-17.9); LYMPHOCYTES # (AUTO) 1.4 X10'3 (1.1-4.8); MEAN CORPUSCULAR HEMOGLOBIN 26.3 PG (27.0-31.0); MEAN CORPUSCULAR HGB CONC 32.9 g/dL (33.0-36.5); MEAN CORPUSCULAR VOLUME 80.1 FL (78-98); MEAN PLATELET VOLUME 9.5 FL (7.4-10.4); MONOCYTES % (AUTO) 7.5 % (2-12); NEUTROPHILS # (AUTO) 11.6 X10'3 (1.8-7.7); NEUTROPHILS % (AUTO) 82.2 % (42-75); PLATELET COUNT 236 X10'3 (140-440); RED BLOOD COUNT 5.35 X10'6 (4.70-6.10); RED CELL DISTRIBUTION WIDTH 14.9 % (11.5-14.5); WHITE BLOOD COUNT 14.1 X10'3 (4.5-11.0)
[2021-07-29] MEDS: REMDESIVIR 100 MG in NS 100ml IVPB IV SCH (08:24)
[2021-07-29] MEDS: aspirin 81mg, enteric-coated 1 TAB TABLET.DR PO SCH (08:30)
[2021-07-29] MEDS: enoxaparin 60mg/0.6ml syringe SQ SCH ×2 (08:30→22:17)
[2021-07-29] MEDS: levoFLOXACIN-Levaquin 750MG/D5 150 ML IV SCH (08:30)
[2021-07-29] MEDS: OMEGA-3/DHA/EPA/FISH OIL 1 EACH CAPSULE.DR PO SCH (08:30)
[2021-07-29] MEDS: docusate sod 100mg capsule PO SCH ×2 (08:31→22:16)
[2021-07-29] MEDS: atorvastatin 20mg tablet PO SCH (08:31)
[2021-07-29] MEDS: ascorbic acid 500mg tablet PO SCH (08:31)
[2021-07-29] MEDS: metoprolol succinate 25mg (24-HOUR) SR. Tablet PO SCH ×2 (08:31→22:16)
[2021-07-29] MEDS: cholecalciferol (vitamin D3) 1,000 unit (25mcg) tablet PO SCH (08:31)
[2021-07-29] MEDS: pantoprazole 40mg Tablet.DR PO SCH (08:32)
[2021-07-29] MEDS: ezetimibe 10mg tablet PO SCH (08:32)
[2021-07-29] MEDS: dexamethasone inj 8 MG in normal saline 50ml IV soln 50 ML IV SCH ×2 (08:32→22:17)
[2021-07-29] MEDS: lisinopril 5mg tablet PO SCH (08:32)
[2021-07-29] MEDS: lactobacillus rhamnosus 10,000 MMU CELLS/CAPSULE PO SCH ×2 (08:32→22:16)
[2021-07-29 08:50] LABS: ALANINE AMINOTRANSFERASE 47 U/L (12-78); ALBUMIN 2.8 G/DL (3.4-5.0); ALBUMIN/GLOBULIN RATIO 0.6 (1.1-1.5); ALKALINE PHOSPHATASE 63 IU/L (46-116); ANION GAP 13 (8-16); BILIRUBIN,TOTAL 0.4 MG/DL (0.1-1.0); BLOOD UREA NITROGEN 22 MG/DL (7-18); BUN/CREATININE RATIO 21.2 (5.4-32.0); CALCIUM 8.6 MG/DL (8.5-10.1); CHLORIDE 100 MMOL/L (99-107); CHOL/HDL RATIO 3.2 (0.00-4.99); CHOLESTEROL 142 MG/DL (0-200); CREATININE 1.04 MG/DL (0.60-1.10); GLUCOSE 278 MG/DL (70-104); HDL CHOLESTEROL 44 MG/DL (35-60); LDL CHOLESTEROL 82 MG/DL (50-100); SODIUM 137 MMOL/L (135-145); TOTAL CARBON DIOXIDE 23.7 MMOL/L (24-32); TOTAL PROTEIN 7.5 G/DL (6.4-8.2); TRIGLYCERIDES 81 MG/DL (20-135); eGFR 74 ML/MIN
[2021-07-29 08:54] LABS: ASPARTATE AMINO TRANSFERASE 40 U/L (10-37); POTASSIUM 4.1 MMOL/L (3.5-5.1)
[2021-07-29 10:00] VITALS: BP 149/91
--- NOTE | 2021-07-29 12:02 | NUR ---
DM/Malnutrition Consults: Pt admit DX COVID-19 hx T2DM A1C 9.7 takes metformin at home per EMR. Pt has no significant weakness, no edema, appears WD/WN per MD note, and lacks minimum malnutrition criteria at this time. [place] d/w RN who reports pt appropriate for verbal DM ed at this time. RD attempted to contact pt via TC however no answer; would benefit from verbal DM ed this admit. Written DM ed w/ RD contact information mailed to pt home address provided in EMR. Addendum: 07/29/21 at [address] Amended: Links added.
[2021-07-29 18:00] VITALS: BP 144/85
--- NOTE | 2021-07-29 18:51 | NUR ---
Problems reprioritized. Patient report given, questions answered & plan of care reviewed with Amina WILKS.
[2021-07-29 22:00] VITALS: BP 143/86
[2021-07-29] MEDS: insulin glargine (Lantus) pen - multi-dose SQ SCH (22:25)
[2021-07-30] MEDS: normal saline 1000ml 1,000 ML IV SCH (01:20)
[2021-07-30 02:00] VITALS: BP 125/84
[2021-07-30 06:00] VITALS: BP 145/85
--- NOTE | 2021-07-30 06:18 | NUR ---
Patient in room [facility]. I have received report from Amina WILKS and had the opportunity to ask questions and assume patient care.
--- NOTE | 2021-07-30 06:27 | NUR ---
Problems reprioritized. Patient report given, questions answered & plan of care reviewed with EFE Lewis.
[2021-07-30 07:43] LABS: BASOPHILS # (AUTO) 0.1 X10'3 (0-0.2); BASOPHILS % (AUTO) 0.5 % (0-1); EOSINOPHILS % (AUTO) 0 % (0-6); HEMOGLOBIN 13.4 g/dl (14.0-17.9); LYMPHOCYTES # (AUTO) 1.3 X10'3 (1.1-4.8); LYMPHOCYTES % (AUTO) 9.2 % (21-51); MEAN CORPUSCULAR HEMOGLOBIN 26.7 PG (27.0-31.0); MEAN CORPUSCULAR HGB CONC 33.6 g/dL (33.0-36.5); MEAN CORPUSCULAR VOLUME 79.7 FL (78-98); MEAN PLATELET VOLUME 9.1 FL (7.4-10.4); MONOCYTES # (AUTO) 1.1 X10'3 (0-0.9); NEUTROPHILS # (AUTO) 11.7 X10'3 (1.8-7.7); NEUTROPHILS % (AUTO) 82.3 % (42-75); PLATELET COUNT 300 X10'3 (140-440); RED BLOOD COUNT 5.02 X10'6 (4.70-6.10); RED CELL DISTRIBUTION WIDTH 14.9 % (11.5-14.5); WHITE BLOOD COUNT 14.2 X10'3 (4.5-11.0)
[2021-07-30 07:45] LABS: ALANINE AMINOTRANSFERASE 45 U/L (12-78); ALBUMIN 2.6 G/DL (3.4-5.0); ALBUMIN/GLOBULIN RATIO 0.6 (1.1-1.5); ALKALINE PHOSPHATASE 75 IU/L (46-116); ANION GAP 9 (8-16); ASPARTATE AMINO TRANSFERASE 35 U/L (10-37); BILIRUBIN,TOTAL 0.4 MG/DL (0.1-1.0); BLOOD UREA NITROGEN 27 MG/DL (7-18); BUN/CREATININE RATIO 25.7 (5.4-32.0); CALCIUM 8.5 MG/DL (8.5-10.1); CHLORIDE 103 MMOL/L (99-107); CREATININE 1.05 MG/DL (0.60-1.10); GLUCOSE 293 MG/DL (70-104); POTASSIUM 4.7 MMOL/L (3.5-5.1); SODIUM 137 MMOL/L (135-145); TOTAL CARBON DIOXIDE 24.9 MMOL/L (24-32); TOTAL PROTEIN 6.7 G/DL (6.4-8.2); eGFR 74 ML/MIN
[2021-07-30] MEDS: cholecalciferol (vitamin D3) 1,000 unit (25mcg) tablet PO SCH (07:48)
[2021-07-30] MEDS: aspirin 81mg, enteric-coated 1 TAB TABLET.DR PO SCH (07:48)
[2021-07-30] MEDS: metoprolol succinate 25mg (24-HOUR) SR. Tablet PO SCH ×2 (07:48→19:56)
[2021-07-30] MEDS: docusate sod 100mg capsule PO SCH ×2 (07:48→19:56)
[2021-07-30] MEDS: dexamethasone inj 8 MG in normal saline 50ml IV soln 50 ML IV SCH ×2 (07:48→19:56)
[2021-07-30] MEDS: ascorbic acid 500mg tablet PO SCH (07:49)
[2021-07-30] MEDS: ezetimibe 10mg tablet PO SCH (07:49)
[2021-07-30] MEDS: OMEGA-3/DHA/EPA/FISH OIL 1 EACH CAPSULE.DR PO SCH (07:49)
[2021-07-30] MEDS: lactobacillus rhamnosus 10,000 MMU CELLS/CAPSULE PO SCH ×2 (07:49→19:56)
[2021-07-30] MEDS: atorvastatin 20mg tablet PO SCH (07:49)
[2021-07-30] MEDS: pantoprazole 40mg Tablet.DR PO SCH (07:49)
[2021-07-30] MEDS: lisinopril 5mg tablet PO SCH (07:49)
[2021-07-30] MEDS: enoxaparin 60mg/0.6ml syringe SQ SCH ×2 (07:50→19:56)
[2021-07-30] MEDS: REMDESIVIR 100 MG in NS 100ml IVPB IV SCH (08:44)
[2021-07-30] MEDS: insulin Lispro (HumaLOG) vial - multi-dose SQ SCH ×2 (09:28→19:51)
[2021-07-30 10:00] VITALS: BP 150/85
[2021-07-30] MEDS: levoFLOXACIN-Levaquin 750MG/D5 150 ML IV SCH (11:08)
--- NOTE | 2021-07-30 11:47 | NUR ---
F/u 07/30: [place] attempted to contact pt room multiple times today for verbal DM ed w/ no answer. Will remain available if pt questions/concerns this admit. Addendum: 07/30/21 at [address] Amended: Links added.
[2021-07-30 14:00] VITALS: BP 131/88
[2021-07-30 18:00] VITALS: BP 154/93
--- NOTE | 2021-07-30 18:39 | NUR ---
Preceptor documentation: I have reviewed and agree with all interventions, assessments performed and documented by Debbie Soliman RN.
--- NOTE | 2021-07-30 19:03 | NUR ---
Patient in room [facility] 40[facility]. I have received report from Debbie WILKS and had the opportunity to ask questions and assume patient care.
[2021-07-30 22:00] VITALS: BP 143/86
[2021-07-30] MEDS: insulin glargine (Lantus) pen - multi-dose SQ SCH (22:20)
[2021-07-31 02:00] VITALS: BP 133/87
[2021-07-31 05:00] VITALS: BP 143/86
--- NOTE | 2021-07-31 06:13 | NUR ---
Problems reprioritized. Patient report given, questions answered & plan of care reviewed with Debbie WILKS.
--- NOTE | 2021-07-31 06:15 | NUR ---
Patient in room [facility]. I have received report from Kandice WILKS and had the opportunity to ask questions and assume patient care.
[2021-07-31] MEDS: dexamethasone inj 8 MG in normal saline 50ml IV soln 50 ML IV SCH ×2 (07:34→20:23)
[2021-07-31] MEDS: atorvastatin 20mg tablet PO SCH (07:34)
[2021-07-31] MEDS: aspirin 81mg, enteric-coated 1 TAB TABLET.DR PO SCH (07:34)
[2021-07-31] MEDS: pantoprazole 40mg Tablet.DR PO SCH (07:35)
[2021-07-31] MEDS: ascorbic acid 500mg tablet PO SCH (07:35)
[2021-07-31] MEDS: lisinopril 5mg tablet PO SCH (07:35)
[2021-07-31] MEDS: cholecalciferol (vitamin D3) 1,000 unit (25mcg) tablet PO SCH (07:35)
[2021-07-31] MEDS: metoprolol succinate 25mg (24-HOUR) SR. Tablet PO SCH ×2 (07:35→20:22)
[2021-07-31] MEDS: ezetimibe 10mg tablet PO SCH (07:35)
[2021-07-31] MEDS: docusate sod 100mg capsule PO SCH ×2 (07:35→20:23)
[2021-07-31] MEDS: OMEGA-3/DHA/EPA/FISH OIL 1 EACH CAPSULE.DR PO SCH (07:35)
[2021-07-31] MEDS: lactobacillus rhamnosus 10,000 MMU CELLS/CAPSULE PO SCH ×2 (07:36→20:23)
[2021-07-31] MEDS: enoxaparin 60mg/0.6ml syringe SQ SCH ×2 (07:36→20:23)
[2021-07-31] MEDS: REMDESIVIR 100 MG in NS 100ml IVPB IV SCH (08:06)
[2021-07-31] MEDS: insulin Lispro (HumaLOG) vial - multi-dose SQ SCH ×4 (08:17→20:54)
[2021-07-31 08:21] LABS: BASOPHILS % (AUTO) 0.2 % (0-1); EOSINOPHILS % (AUTO) 0 % (0-6); HEMATOCRIT 40.6 % (42.0-52.0); HEMOGLOBIN 13.6 g/dl (14.0-17.9); LYMPHOCYTES # (AUTO) 1.3 X10'3 (1.1-4.8); LYMPHOCYTES % (AUTO) 10.6 % (21-51); MEAN CORPUSCULAR HEMOGLOBIN 26.9 PG (27.0-31.0); MEAN CORPUSCULAR HGB CONC 33.5 g/dL (33.0-36.5); MEAN CORPUSCULAR VOLUME 80.2 FL (78-98); MEAN PLATELET VOLUME 8.7 FL (7.4-10.4); MONOCYTES # (AUTO) 1.1 X10'3 (0-0.9); MONOCYTES % (AUTO) 8.9 % (2-12); NEUTROPHILS % (AUTO) 80.3 % (42-75); PLATELET COUNT 340 X10'3 (140-440); RED BLOOD COUNT 5.06 X10'6 (4.70-6.10); RED CELL DISTRIBUTION WIDTH 14.8 % (11.5-14.5); WHITE BLOOD COUNT 12.4 X10'3 (4.5-11.0)
[2021-07-31 09:02] LABS: GLUCOSE 231 MG/DL (70-104); POTASSIUM 4.5 MMOL/L (3.5-5.1); SODIUM 136 MMOL/L (135-145)
[2021-07-31 09:03] LABS: ALANINE AMINOTRANSFERASE 47 U/L (12-78); ALBUMIN 2.6 G/DL (3.4-5.0); ALBUMIN/GLOBULIN RATIO 0.6 (1.1-1.5); ALKALINE PHOSPHATASE 59 IU/L (46-116); ANION GAP 10 (8-16); ASPARTATE AMINO TRANSFERASE 31 U/L (10-37); BILIRUBIN,TOTAL 0.5 MG/DL (0.1-1.0); BLOOD UREA NITROGEN 23 MG/DL (7-18); BUN/CREATININE RATIO 23.2 (5.4-32.0); CALCIUM 8.1 MG/DL (8.5-10.1); CHLORIDE 102 MMOL/L (99-107); CREATININE 0.99 MG/DL (0.60-1.10); TOTAL CARBON DIOXIDE 24.4 MMOL/L (24-32); TOTAL PROTEIN 6.7 G/DL (6.4-8.2); eGFR 79 ML/MIN
[2021-07-31] MEDS: levoFLOXACIN-Levaquin 750MG/D5 150 ML IV SCH (09:51)
[2021-07-31 10:00] VITALS: BP 132/69
[2021-07-31 11:47] LABS: BURR CELLS 2+; PLATELET ESTIMATE NORMAL; TOTAL CELLS COUNTED 100
[2021-07-31 14:00] VITALS: BP 141/79
--- NOTE | 2021-07-31 15:50 | NUR ---
Preceptor documentation: I have reviewed and agree with all interventions, assessments performed and documented by Debbie Soliman RN .
[2021-07-31 18:00] VITALS: BP 139/89
--- NOTE | 2021-07-31 18:30 | NUR ---
Patient in room [facility] 40[facility]. I have received report from Debbie WILKS and had the opportunity to ask questions and assume patient care.
--- NOTE | 2021-07-31 20:45 | NUR ---
Attempted to decreased his oxygen flow to 5liters but his oxygen saturation was 88-90%on 6.5liters high flow so I did not lower the oxygen flow at this time. Had him use the IS and deep breathe and again educated him on prone position and laying on his side when sleeping to improve the oxygen saturation.
[2021-07-31] MEDS: insulin glargine (Lantus) pen - multi-dose SQ SCH (20:52)
[2021-07-31 22:00] VITALS: BP 139/83
[2021-08-01] MEDS: normal saline 1000ml 1,000 ML IV SCH ×2 (00:25→06:03)
[2021-08-01 02:00] VITALS: BP 139/90
[2021-08-01 06:00] VITALS: BP 148/88
--- NOTE | 2021-08-01 06:34 | NUR ---
Problems reprioritized. Patient report given, questions answered & plan of care reviewed with Hakeem WILKS.
[2021-08-01] MEDS: dexamethasone inj 8 MG in normal saline 50ml IV soln 50 ML IV SCH ×2 (07:47→18:49)
[2021-08-01] MEDS: lactobacillus rhamnosus 10,000 MMU CELLS/CAPSULE PO SCH ×2 (07:50→18:48)
[2021-08-01] MEDS: docusate sod 100mg capsule PO SCH ×2 (07:50→18:49)
[2021-08-01] MEDS: enoxaparin 60mg/0.6ml syringe SQ SCH ×2 (07:50→18:50)
[2021-08-01] MEDS: OMEGA-3/DHA/EPA/FISH OIL 1 EACH CAPSULE.DR PO SCH (07:50)
[2021-08-01] MEDS: metoprolol succinate 25mg (24-HOUR) SR. Tablet PO SCH ×2 (07:50→18:48)
[2021-08-01] MEDS: aspirin 81mg, enteric-coated 1 TAB TABLET.DR PO SCH (07:50)
[2021-08-01] MEDS: cholecalciferol (vitamin D3) 1,000 unit (25mcg) tablet PO SCH (07:50)
[2021-08-01] MEDS: ascorbic acid 500mg tablet PO SCH (07:50)
[2021-08-01] MEDS: ezetimibe 10mg tablet PO SCH (07:50)
[2021-08-01] MEDS: atorvastatin 20mg tablet PO SCH (07:50)
[2021-08-01] MEDS: pantoprazole 40mg Tablet.DR PO SCH (07:51)
[2021-08-01] MEDS: lisinopril 5mg tablet PO SCH (07:51)
[2021-08-01] MEDS: insulin Lispro (HumaLOG) vial - multi-dose SQ SCH ×4 (08:03→21:16)
[2021-08-01 08:30] LABS: BASOPHILS % (AUTO) 0.3 % (0-1); EOSINOPHILS % (AUTO) 0.1 % (0-6); HEMOGLOBIN 14.1 g/dl (14.0-17.9); LYMPHOCYTES # (AUTO) 1.8 X10'3 (1.1-4.8); LYMPHOCYTES % (AUTO) 14.1 % (21-51); MEAN CORPUSCULAR HEMOGLOBIN 26.7 PG (27.0-31.0); MEAN CORPUSCULAR HGB CONC 33.5 g/dL (33.0-36.5); MEAN CORPUSCULAR VOLUME 79.6 FL (78-98); MEAN PLATELET VOLUME 8.7 FL (7.4-10.4); MONOCYTES # (AUTO) 1.3 X10'3 (0-0.9); NEUTROPHILS # (AUTO) 9.8 X10'3 (1.8-7.7); NEUTROPHILS % (AUTO) 75.5 % (42-75); PLATELET COUNT 387 X10'3 (140-440); RED BLOOD COUNT 5.28 X10'6 (4.70-6.10); RED CELL DISTRIBUTION WIDTH 14.8 % (11.5-14.5); WHITE BLOOD COUNT 12.9 X10'3 (4.5-11.0)
[2021-08-01 08:50] LABS: ALANINE AMINOTRANSFERASE 52 U/L (12-78); ALBUMIN 2.7 G/DL (3.4-5.0); ALBUMIN/GLOBULIN RATIO 0.7 (1.1-1.5); ALKALINE PHOSPHATASE 60 IU/L (46-116); ANION GAP 8 (8-16); ASPARTATE AMINO TRANSFERASE 37 U/L (10-37); BILIRUBIN,TOTAL 0.5 MG/DL (0.1-1.0); BLOOD UREA NITROGEN 20 MG/DL (7-18); BUN/CREATININE RATIO 21.7 (5.4-32.0); CALCIUM 8.3 MG/DL (8.5-10.1); CHLORIDE 106 MMOL/L (99-107); CREATININE 0.92 MG/DL (0.60-1.10); GLUCOSE 218 MG/DL (70-104); POTASSIUM 4.5 MMOL/L (3.5-5.1); SODIUM 138 MMOL/L (135-145); TOTAL CARBON DIOXIDE 23.8 MMOL/L (24-32); TOTAL PROTEIN 6.6 G/DL (6.4-8.2); eGFR 86 ML/MIN
[2021-08-01 09:27] VITALS: BP 142/94
[2021-08-01 13:02] LABS: BURR CELLS 2+; MICROCYTOSIS 1+; PLATELET ESTIMATE NORMAL; TOTAL CELLS COUNTED 100
[2021-08-01] MEDS: levoFLOXACIN 750MG TABLET PO SCH (13:10)
--- NOTE | 2021-08-01 13:43 | NUR ---
DM consult: Pt with T2DM with A1c 9.7%, multiple unsuccessful phone calls to pt for verbal DM education. Written DM education with RD contact information has been mailed to patient's home address found in EMR. Pt admit for acute respiratory failure with hypoxia and bilat COVID PNA. Currently on a CHO controlled 2 g sodium restricted diet and eating well with mostly 75-100% PO intake of meals. LBM 07/31, receiving routine bowel care. No nutrition intervention implemented at this time. Will continue to follow and make recommendations as appropriate. Recommendations: 1) Continue CHO controlled diet; discontinue 2 g Na restriction with MD approval given serum Na WNL 2) Monitor need for ONS/additional protein 3) Routine bowel care 4) Scaled weight this admit; weekly scaled weights thereafter Addendum: 08/01/21 at [address] Amended: Links added.
[2021-08-01 14:00] VITALS: BP 120/83
[2021-08-01 18:00] VITALS: BP 144/90
[2021-08-01] MEDS: insulin glargine (Lantus) pen - multi-dose SQ SCH (21:14)
[2021-08-01 22:00] VITALS: BP 138/85
[2021-08-02 02:00] VITALS: BP 131/86
[2021-08-02 06:00] VITALS: BP 127/86
--- NOTE | 2021-08-02 06:12 | NUR ---
Problems reprioritized. Patient report given, questions answered & plan of care reviewed with DARREN WILKS.
--- NOTE | 2021-08-02 06:20 | NUR ---
received report from glen lantigua
[2021-08-02 06:30] LABS: BASOPHILS # (AUTO) 0.1 X10'3 (0-0.2); BASOPHILS % (AUTO) 0.9 % (0-1); EOSINOPHILS % (AUTO) 0 % (0-6); HEMATOCRIT 43.6 % (42.0-52.0); HEMOGLOBIN 14.6 g/dl (14.0-17.9); LYMPHOCYTES % (AUTO) 13.2 % (21-51); MEAN CORPUSCULAR HEMOGLOBIN 26.8 PG (27.0-31.0); MEAN CORPUSCULAR HGB CONC 33.4 g/dL (33.0-36.5); MEAN CORPUSCULAR VOLUME 80.4 FL (78-98); MEAN PLATELET VOLUME 8.4 FL (7.4-10.4); MONOCYTES # (AUTO) 1.6 X10'3 (0-0.9); MONOCYTES % (AUTO) 10.5 % (2-12); NEUTROPHILS # (AUTO) 11.2 X10'3 (1.8-7.7); NEUTROPHILS % (AUTO) 75.4 % (42-75); PLATELET COUNT 388 X10'3 (140-440); RED BLOOD COUNT 5.42 X10'6 (4.70-6.10); RED CELL DISTRIBUTION WIDTH 14.8 % (11.5-14.5); WHITE BLOOD COUNT 14.8 X10'3 (4.5-11.0)
[2021-08-02 06:45] LABS: ALANINE AMINOTRANSFERASE 61 U/L (12-78); ALBUMIN 2.7 G/DL (3.4-5.0); ALBUMIN/GLOBULIN RATIO 0.7 (1.1-1.5); ALKALINE PHOSPHATASE 62 IU/L (46-116); ANION GAP 4 (8-16); ASPARTATE AMINO TRANSFERASE 32 U/L (10-37); BILIRUBIN,TOTAL 0.5 MG/DL (0.1-1.0); BLOOD UREA NITROGEN 19 MG/DL (7-18); BUN/CREATININE RATIO 19.6 (5.4-32.0); CALCIUM 8.4 MG/DL (8.5-10.1); CHLORIDE 105 MMOL/L (99-107); CREATININE 0.97 MG/DL (0.60-1.10); GLUCOSE 227 MG/DL (70-104); POTASSIUM 4.8 MMOL/L (3.5-5.1); SODIUM 136 MMOL/L (135-145); TOTAL PROTEIN 6.6 G/DL (6.4-8.2); eGFR 81 ML/MIN
[2021-08-02] MEDS: cholecalciferol (vitamin D3) 1,000 unit (25mcg) tablet PO SCH (07:57)
[2021-08-02] MEDS: OMEGA-3/DHA/EPA/FISH OIL 1 EACH CAPSULE.DR PO SCH (07:57)
[2021-08-02] MEDS: ezetimibe 10mg tablet PO SCH (07:57)
[2021-08-02] MEDS: ascorbic acid 500mg tablet PO SCH (07:57)
[2021-08-02] MEDS: lisinopril 5mg tablet PO SCH (07:57)
[2021-08-02] MEDS: aspirin 81mg, enteric-coated 1 TAB TABLET.DR PO SCH (07:58)
[2021-08-02] MEDS: atorvastatin 20mg tablet PO SCH (07:58)
[2021-08-02] MEDS: enoxaparin 60mg/0.6ml syringe SQ SCH (07:58)
[2021-08-02] MEDS: metoprolol succinate 25mg (24-HOUR) SR. Tablet PO SCH (07:58)
[2021-08-02] MEDS: pantoprazole 40mg Tablet.DR PO SCH (07:58)
[2021-08-02] MEDS: lactobacillus rhamnosus 10,000 MMU CELLS/CAPSULE PO SCH (07:58)
[2021-08-02] MEDS ORDERED: dexamethasone inj 8 MG in dextrose 5%-water 100 ML IV SCH (08:00)
[2021-08-02] MEDS: docusate sod 100mg capsule PO SCH (08:00)
[2021-08-02 08:26] LABS: BURR CELLS 2+; PLATELET ESTIMATE NORMAL; TOTAL CELLS COUNTED 100
[2021-08-02 08:27] LABS: MICROCYTOSIS 1+; POLYCHROMASIA FEW
[2021-08-02] MEDS: insulin Lispro (HumaLOG) vial - multi-dose SQ SCH ×2 (08:56→13:35)
[2021-08-02 10:00] VITALS: BP 146/92
--- NOTE | 2021-08-02 10:32 | NUR ---
O2 Sat at rest on room air:_84__% If below 89%: Recovery O2 Sat at rest on _4__LPM:__92_%:___% via nasal cannula (mask/nasal cannula, etc..) No further documentation is necessary. If O2 Sat did not drop below 89% on room air,ambulate patient on room air. O2 Sat while ambulating on room air:___% Recovery O2 Sat while ambulating on ___LPM:___% No further documentation is necessary. If patient does not drop below 89% while ambulating, he/she does not qualify for home O2.
[2021-08-02] MEDS: levoFLOXACIN 750MG TABLET PO SCH (10:57)
[2021-08-02] MEDS ORDERED: DEC4T PO (11:04)
[2021-08-02] MEDS ORDERED: LEVO500T90 PO (11:07)
--- NOTE | 2021-08-02 18:27 | NUR ---
pt d/c with instructions, understanding of instructions and w/all belongings in wheelchair accompanied by nursing staff to private vehicle to go home and f/u w/pcp
== END 2021-08-02 17:30 | disposition home or self-care (01) | DRG 177 ==
LOC: ER 22:08 → UNDOADMIN 07-28 00:25 → ED HOLD 07-28 00:25 → ORTHO 4S 07-28 23:57 → ED HOLD 07-28 23:57
PROVIDERS: ADMIT Family Medicine; ATTEND Internal Medicine
PROC: XW033E5 Introduction of Remdesivir Anti-infective into Peripheral Vein, Percutaneous Approach, New Technology Group 5 (ICD-10-PCS; principal; 2021-07-28)
PROC: B32T1ZZ Computerized Tomography (CT Scan) of Left Pulmonary Artery using Low Osmolar Contrast (ICD-10-PCS; 2021-07-28)
PROC: B3201ZZ Computerized Tomography (CT Scan) of Thoracic Aorta using Low Osmolar Contrast (ICD-10-PCS; 2021-07-28)
PROC: B32S1ZZ Computerized Tomography (CT Scan) of Right Pulmonary Artery using Low Osmolar Contrast (ICD-10-PCS; 2021-07-28)
PROC: 5A0935A Assistance with Respiratory Ventilation, Less than 24 Consecutive Hours, High Flow/Velocity Cannula (ICD-10-PCS; 2021-07-29)
PROC: 5A0945A Assistance with Respiratory Ventilation, 24-96 Consecutive Hours, High Flow/Velocity Cannula (ICD-10-PCS; 2021-07-30)
DX: U07.1 COVID-19 (principal); J96.01 Acute respiratory failure with hypoxia; I50.33 Acute on chronic diastolic (congestive) heart failure; J12.82 Pneumonia due to coronavirus disease 2019; I16.1 Hypertensive emergency; Z68.41 Body mass index [BMI] 40.0-44.9, adult; I11.0 Hypertensive heart disease with heart failure; E11.9 Type 2 diabetes mellitus without complications; E66.01 Morbid (severe) obesity due to excess calories; I25.10 Atherosclerotic heart disease of native coronary artery without angina pectoris; K21.9 Gastro-esophageal reflux disease without esophagitis; Z88.0 Allergy status to penicillin; Z79.899 Other long term (current) drug therapy; Z79.82 Long term (current) use of aspirin
CPT/HCPCS: 36415; 71045; 71275; 80053; 80061; 82948; 83036; 83615; 83735; 83880; 84100; 84484; 85007; 85025; 85379; 85610; 85730; 86140; 87081; 93005; 94760; 96374; 99285; G0378; J1100; J1650; J1815; J1956; J2405; J7030; J7060; J8540; Q9967